=== PATIENT | female | born 1970 | race Caucasian/White ===

== ENCOUNTER 2017-04-28 10:50 | Emergency (ER) | payer OTHER, SELFPAY ==
[2017-04-28 12:20] VITALS: BP 123/89; PULSE 114; RESP 20; TEMP 38.3; O2SAT 98; BMI 24.2
[2017-04-28 22:22] LABS: UTC Influenza A Antigen Negative (Negative); UTC Influenza B Antigen Negative (Negative); UTC Strep Screen (Rapid) Negative (Negative)
== END 2017-04-28 12:20 | disposition home or self-care (01) ==
PROVIDERS: Emergency Provider Physician Assistant; Family Provider Family Medicine; PCP Family Medicine
DX: J11.1 Influenza due to unidentified influenza virus with other respiratory manifestations (principal)
CPT/HCPCS: 87276; 87430; 87804; 87880; 99202

== ENCOUNTER → 2017-08-16 08:06 | Outpatient (CLI) | payer OTHER, SELFPAY ==
--- NOTE | 2017-08-16 08:11 | MM_ITS ---
MM Dig screening mamm BI w/CAD CAD Screening ORDERING PHYSICIAN : Tanvi Donato PATIENT AGE: 47 years GENDER: Female COMPARISON: Previous mammograms: July 2014, January 2016, December 2011 INDICATION: Routine screening with no hormones, no new complaints. Noncontributory family history. TECHNIQUE: Standard CC and MLO images were obtained. R2 CAD reviewed. FINDINGS: Dense inhomogeneous breast bilaterally again seen. Relatively Difficult mammogram for interpretation due to the asymmetric and inhomogeneous appearance with scattered areas of focal increased density throughout bilaterally but I see no definitive new mass or findings. No suspicious new densities overall compared to multiple prior studies. Bilateral follow-up in one year recommended. . Ultrasound may be useful compliment to mammography in breast of this inhomogeneous and moderate increased density. Certainly If any palpable areas developed or progressed low threshold for ultrasound would be appropriate to survey & Self breast examinations would be encouraged IMPRESSION: Dense inhomogeneous breast bilaterally decreased sensitivity mammography but we see no discrete new areas of significant concern. Bilateral follow-up in one year again recommended & would be encouraged/emphasized. BI-RADS Category: 2 Benign Finding(s) RECOMMENDED FOLLOW-UP: 1YR - 1 YEAR FOLLOW-UP (A letter has been sent to the patient regarding results of the study.)
== END ==
PROVIDERS: Family Provider Family Medicine; PCP Family Medicine; Visit Provider Obstetrics & Gynecology Gynecology
DX: Z12.31 Encounter for screening mammogram for malignant neoplasm of breast (principal)
CPT/HCPCS: 77067

== ENCOUNTER → 2018-03-04 08:32 | Outpatient (CLI) | payer OTHER, SELFPAY ==
[2018-03-04 09:27] LABS: Basophils % 0.6 % (0.1-2.0); Eosinophils # 0.1 K/mm3 (0.0-0.4); Eosinophils % 1.2 % (0.1-12.0); Hematocrit 42.8 % (37.0-47.0); Lymphocytes # 1.7 K/mm3 (0.7-4.5); Lymphocytes % 32.3 % (10-50); Mean Corpuscular HGB Conc 32.7 g/dL (31.8-35.4); Mean Corpuscular Hemoglobin 29.8 pg (27.0-31.2); Mean Corpuscular Volume 91.2 fl (81-99); Mean Platelet Volume 7.4 fl (7.4-10.4); Monocytes # 0.3 K/mm3 (0.1-1.0); Monocytes % 4.6 % (1.7-9.3); Neutrophils # 3.2 K/mm3 (1.8-7.8); Neutrophils % 61.2 % (37.0-80.0); Platelet Count 247 K/mm3 (142-424); Red Cell Distribution Width 12.7 % (11.5-17.5); White Blood Count 5.3 K/mm3 (4.8-10.8)
[2018-03-04 10:07] LABS: Erythrocyte Sedimentation Rate 10 mm/hr (0-20)
[2018-03-04 11:10] LABS: Alanine Aminotransferase 25 U/L (12-78); Albumin Level 3.7 gm/dL (3.4-5.0); Albumin/Globulin Ratio 1.1 (1.1-1.8); Alkaline Phosphatase 83 U/L (46-116); Anion Gap 15.1 mEq/L (5-15); Aspartate Amino Transferase 15 U/L (15-37); Bilirubin,Total 1.6 mg/dL (0.2-1.0); Blood Urea Nitrogen 8 mg/dL (7-18); Calcium 8.8 mg/dL (8.5-10.1); Carbon Dioxide 26 mmol/L (21.0-32.0); Chloride 104 mmol/L (98-107); Chol/HDL Ratio 2.4 (1-3.5); Cholesterol 195 mg/dL (140-200); Creatinine,Serum 0.76 mg/dL (0.55-1.02); Estimated Glomerular Filt Rate 82 ml/min (>60); GFR (African American) 99 ML/MIN (>60); Globulin 3.3 gm/dl (1.3-3.2); Glucose 101 mg/dL (74-106); HDL Cholesterol 81 mg/dL (29-89); LDL Cholesterol 102 mg/dL (0-130); Potassium 4.1 mmoL/L (3.5-5.1); Sodium 141 mmol/L (136-145); T4 (Thyroxine) 9.7 ug/dl (4.7-13.3); Thyroid Stimulating Hormone 1.42 uIU/ml (0.358-3.740); Triglycerides 58 mg/dL (30-200); Uric Acid 4.2 mg/dL (2.6-7.2); VLDL Cholesterol 12 mg/dL (0-40)
[2018-03-04 11:11] LABS: C-Reactive Protein < 0.2 mg/L (0.0-0.9)
[2018-03-05 09:20] LABS: Vitamin D 25 Hydroxy 29.5 ng/mL (30.0-100.0)
[2018-03-05 15:18] LABS: Antichromatin Antibodies <0.2 AI (0.0-0.9); RA Latex Turbid. <10.0 IU/mL (0.0-13.9); RNP Antibodies <0.2 AI (0.0-0.9); Sjogren's Anti-SS-A <0.2 AI (0.0-0.9); Sjogren's Anti-SS-B <0.2 AI (0.0-0.9)
[2018-03-06 07:00] LABS: Folate 14.1 ng/mL (>3.0)
[2018-03-06 07:01] LABS: Anti-DNA (DS) Ab Qn <1 IU/mL (0-9); Antinuclear Antibodies, IFA Positive (.); Vitamin B12 525 pg/mL (232-1245)
[2018-03-06 07:25] LABS: PTT-LA 34.5 sec (0.0-51.9); dRVVT 35.2 sec (0.0-47.0)
[2018-03-07 07:03] LABS: Lupus Reflex Interpretation Comment: (.)
== END ==
PROVIDERS: Visit Provider Nurse Practitioner Family
DX: L65.9 Nonscarring hair loss, unspecified (principal); R53.83 Other fatigue
CPT/HCPCS: 36415; 80053; 80061; 82607; 82652; 82746; 84436; 84443; 84550; 85025; 85613; 85651; 86038; 86140; 86225; 86235; 86431

== ENCOUNTER → 2019-05-28 13:26 | Outpatient (CLI) | payer OTHER, SELFPAY ==
[2019-05-28 13:27] LABS: Microscopic, Urine URINE MICROSCOPIC (MICROSCOPIC)
[2019-05-28 13:33] LABS: Appearance,Urine CLEAR (Clear); Bilirubin,Urine Negative (Negative); Blood, Urine Negative (Negative); Color,Urine YELLOW (Yellow); Glucose,Urine (UA) Negative (Negative); Ketones,Urine Negative (Negative); Leukocyte Esterase,Urine Negative (Negative); Nitrate,Urine POSITIVE (Negative); Protein,Urine Negative (Negative); Specific Gravity, Urine 1.025 (1.005-1.030); Urobilinogen,Urine 0.2 EU/dl (0.2)
[2019-05-28 13:40] LABS: Bacteria,Urine 4+ /lpf
== END ==
PROVIDERS: Visit Provider Emergency Medicine
DX: N39.0 Urinary tract infection, site not specified (principal)
CPT/HCPCS: 81001; 87086; 87088; 87186

== ENCOUNTER 2021-05-14 08:57 | Emergency (ER) | payer BC, SELFPAY ==
[2021-05-14 09:15] VITALS: BP 141/92; PULSE 102; RESP 21; TEMP 37.3; O2SAT 99; BMI 23.0
--- NOTE | 2021-05-14 09:18 | HMH.EDUTC ---
[facility] [place] Disposition Clinical Impression: URI (upper respiratory infection) Qualifiers: URI type: unspecified URI Qualified Code(s): J06.9 - Acute upper respiratory infection, unspecified Disposition: Home, Self-Care Condition on Discharge: Good Instructions: Sore Throat, DI for Cough -- Adult, DI for Nasal Congestion Additional Instructions: *Monitor Temp, Over the counter Motrin or Tylenol as directed/as needed Tylenol every 4 hours and Motrin every 6 hours (as long as your family doctor has told you that you can take it) for fever or pain. and straight to ER if unable to lower temp less than 101.0 after medication given *Warm salt water gargles may help to soothe the throat *Throat Lozenges *Warm fluids like tea with honey may help to soothe the throat *Sleep elevated *Humidifier/Vaporizer Your throat swab was sent for culture. Those results are typically sent to your primary care. Be sure to follow up in 2-3 days with your family doctor/primary care physician if no improvement so they can review those result and treat if necessary. If you don?t have a primary care doctor, I recommend you get one but in the mean time, you will have to return to a walk in clinic Follow up IMMEDIATELY for new or worsening symptoms or no Noticeable improvement over the next 48-72 hours. 911 for difficulty breathing or swallowing Prescriptions: Benzonatate [Benzonatate 100mg cap] 100 mg PO Q8HP PRN #15 cap PRN Reason: Cough Transmission Status: Pending to [facility] # Azithromycin [Z-Terence 250mg Tab] 250 mg PO DIRECTED #6 tab Transmission Status: Pending to [facility] # Referrals: Jw Browning MD [Primary Care Provider] - As needed Time of Disposition: 09:59 Medical Decision Making - Teodoro Inquiry Pt receiving controlled substance: No Teodoro was queried for this patient: No Vital Signs: 05/14/21 09:15 Temperature 99.2 F Temperature Source Oral Pulse Rate [Left] 102 H Respiratory Rate 21 Blood Pressure [Right Arm] 141/92 H Blood Pressure Mean [Right Arm] 108 02 Sat by Pulse Oximetry 99 - Lab Data Lab results reviewed: Yes: I reviewed the patient's lab results. Lab Results 05/14/21 09:10: Group A Strep Rapid Negative 05/14/21 09:16: Influenza Type A Ag Negative, Influenza Type B Ag Negative Orders (Tests/Meds): ORDERS Category Date Time Status Strep Screen Confirmation Stat Micro 05/14/21 09:10 Received [facility] [place] HPI - General Stated complaint: sore throat, cough, h/a, body aches, congestion Time Seen by Provider: 05/14/21 09:18 Mode of Arrival: Ambulatory Source of Information: Patient Limitations: No Limitations Description of Symptoms (Recalled from Triage Doc. by RN): pt c/o a cough and body aches since yesterday. pt was covid positive 3 wks ago. HEENT Symptoms (Recalled from RN notes): No Resp Symptoms (Recalled from RN notes): Yes (cough) Skin Symptoms (Recalled from RN notes): No MS Symptoms (Recalled from RN notes): No Functional Status (Recalled from RN notes): wnl - History of Present Illness Provider Complaint: Patient states that she has been having cough, sore throat, body aches and pain in both ears that started yesterday States that she had COVID about 3 weeks ago and was better but now this started yesterday - Related Data Home Medications Medication Instructions Recorded Confirmed bisoprolol fumarate 5 mg tablet 5 mg PO DAILY 30 Days #30 tab 03/19/18 04/07/19 Previous Rx's Medication Instructions Recorded Phenazopyridine HCl [Pyridium 200 pow PO TID #6 tab 04/07/19 200mg Tablet] Sulfamethoxazole/Trimethoprim 1 each PO BID 7 Days #14 tab 04/07/19 [Bactrim DS tablet] meclizine 25 mg tablet See Rx Instructions PO TID PRN #21 05/25/19 tab ondansetron HCl 4 mg tablet 4 mg PO Q8H PRN #21 tab 05/25/19 promethazine 25 mg tablet 25 mg PO TID PRN #21 tab 05/25/19 ciprofloxacin HCl 500 mg tablet 500 mg PO BID 5 Days #10 tab 0
[2021-05-14 09:44] LABS: UTC Influenza A Antigen Negative (Negative); UTC Influenza B Antigen Negative (Negative)
[2021-05-14 09:45] LABS: Strep Scrn Group A (Rapid) Negative (Negative)
[2021-05-14 10:15] VITALS: BP 141/92; PULSE 102; RESP 21; TEMP 37.3
== END 2021-05-14 10:16 | disposition home or self-care (01) ==
PROVIDERS: Emergency Provider Nurse Practitioner; PCP Emergency Medicine
DX: J06.9 Acute upper respiratory infection, unspecified (principal); Z20.822 Contact with and (suspected) exposure to COVID-19; I48.0 Paroxysmal atrial fibrillation
CPT/HCPCS: 87430; 87804; 99203; G0463

== ENCOUNTER → 2021-07-03 17:02 | Outpatient (CLI) | payer OTHER, SELFPAY ==
[2021-07-03 19:55] LABS: Basophils # 0.1 K/mm3 (0-0.2); Basophils % 1.5 % (0.1-2.0); Eosinophils % 0.3 % (0.1-12.0); Hemoglobin 15.7 g/dL (12.2-16.2); Lymphocytes # 2.3 K/mm3 (0.7-4.5); Lymphocytes % 27.8 % (10-50); Mean Corpuscular HGB Conc 33.5 g/dL (31.8-35.4); Mean Corpuscular Hemoglobin 31.2 pg (27.0-31.2); Mean Corpuscular Volume 93.1 fl (81-99); Mean Platelet Volume 10.5 fl (7.4-10.4); Monocytes # 0.6 K/mm3 (0.1-1.0); Monocytes % 7.8 % (1.7-9.3); Neutrophils # 5.1 K/mm3 (1.8-7.8); Neutrophils % 62.5 % (37.0-80.0); Platelet Count 312 K/mm3 (142-424); Red Blood Count 5.05 M/mm3 (4.20-5.40); Red Cell Distribution Width 13.3 % (11.5-17.5); White Blood Count 8.2 K/mm3 (4.8-10.8)
[2021-07-03 20:05] LABS: Alanine Aminotransferase 20 U/L (12-78); Albumin Level 4.9 g/dl (3.5-5.0); Albumin/Globulin Ratio 1.8 (1.1-1.8); Alkaline Phosphatase 71 U/L (38-126); Anion Gap 12.5 mEq/L (5-15); Aspartate Amino Transferase 26 U/L (14-36); Bilirubin,Total 1.3 mg/dl (0.2-1.3); Blood Urea Nitrogen 14 mg/dl (7-17); Calcium 9.8 mg/dl (8.4-10.2); Carbon Dioxide 27 mmol/L (22.0-30.0); Chloride 101 mmol/L (98-107); Chol/HDL Ratio 2.2 (1-3.5); Cholesterol 210 mg/dl (140-200); Estimated Glomerular Filt Rate 76 ml/min (>60); GFR (African American) 92 ML/MIN (>60); Globulin 2.7 g/dL (1.3-3.2); Glucose 88 mg/dl (74-100); HDL Cholesterol 95 mg/dl (40-60); Potassium 4.5 mmoL/L (3.5-5.1); Sodium 136 mmol/L (136-145); Total Protein,Serum 7.6 g/dl (6.3-8.2); Triglycerides 150 mg/dl (30-150); Uric Acid 4.6 mg/dl (2.5-6.2); VLDL Cholesterol 30 mg/dL (0-40)
[2021-07-03 20:17] LABS: C-Reactive Protein 2.3 mg/L (0-4); Direct LDL Cholesterol 82.79 mg/dL (100-129)
[2021-07-03 20:22] LABS: T4 (Thyroxine) 8.5 ug/dl (5.53-11.0)
[2021-07-03 20:23] LABS: 25-OH Vitamin D, Total 38.6 ng/mL (30-100)
[2021-07-03 20:29] LABS: Erythrocyte Sedimentation Rate 16 mm/hr (0-20)
[2021-07-03 20:36] LABS: Thyroid Stimulating Hormone 1.65 uIU/mL (0.465-4.68)
[2021-07-05 08:47] LABS: RA Latex Turbid. 10.4 IU/mL (<14.0)
[2021-07-05 13:12] LABS: Antinuclear Antibodies, IFA Negative (.)
== END ==
PROVIDERS: Visit Provider Nurse Practitioner Family
DX: R53.83 Other fatigue (principal); M25.50 Pain in unspecified joint
CPT/HCPCS: 80053; 80061; 82306; 84436; 84443; 84550; 85025; 85651; 86038; 86140; 86431

== ENCOUNTER → 2021-08-01 13:39 | Outpatient (CLI) | payer OTHER, SELFPAY ==
[2021-08-25 19:09] LABS: Anti-Cardiolipin Antibody IgG <10 GPL (.); Anti-Cardiolipin Antibody IgM <10 MPL (.); Beta-2 Glycoprotein I Ab, IgA <10 SAU (.); Beta-2 Glycoprotein I Ab, IgG <10 SGU (.); Beta-2 Glycoprotein I Ab, IgM <10 SMU (.); Hexagonal Phase Phospholipid 3 sec (.); Prothrombin Time 10.3 sec (.); Thrombin Time 18.8 sec (.)
== END ==
PROVIDERS: Visit Provider Nurse Practitioner Family
DX: M25.50 Pain in unspecified joint (principal); R53.83 Other fatigue
CPT/HCPCS: 36415; 85597; 85598; 85610; 85613; 85670; 85730; 86146; 86147

== ENCOUNTER → 2021-08-07 15:07 | Outpatient (CLI) | payer OTHER, SELFPAY ==
--- NOTE | 2021-08-07 15:08 | MR_ITS ---
FINAL REPORT CLINICAL HISTORY: elbow pain. elbow pain [id number]. pain worse on radial side. pain when bending and extending. no injury or trauma. FINDINGS: Multiplanar MR imaging of the right elbow was performed without contrast. The bony structures are intact without evidence of fracture, bone bruise or marrow edema. There is no evidence of osteochondral lesion. The ligaments appear intact. There is a moderate, partial tear of the origin of the common extensor tendon. The common flexor tendon is intact. The biceps tendon is intact. The distal triceps tendon is intact. The brachialis tendon is intact. The musculature has an unremarkable appearance. No soft tissue mass or cyst is identified. There is a small joint effusion. No focal abnormality is identified of the ulnar nerve. IMPRESSION: Moderate, partial tear at the origin of the common extensor tendon. Small joint effusion. Reviewed, Interpreted and Dictated by Ryan Juares III, MD Transcribed by Nadine Frazier Authenticated by Ryan Juares III, MD on 08/07/2021 05:12:13 PM [facility]
== END ==
PROVIDERS: PCP Nurse Practitioner Family; Visit Provider Nurse Practitioner Family
DX: M25.521 Pain in right elbow (principal)
CPT/HCPCS: 73221

== ENCOUNTER → 2021-10-16 07:04 | Outpatient (CLI) | payer OTHER, SELFPAY ==
--- NOTE | 2021-10-16 07:35 | MM_ITS ---
PROCEDURE INFORMATION: Exam: MG Bilateral Screening 3D Mammography Exam date and time: 10/16/2021 7:53 AM Age: 51 years old Clinical indication: Screening. No family history of breast cancer. TECHNIQUE: Imaging protocol: Bilateral Screening tomosynthesis and 2D mammography including computer-aided detection (CAD) when performed. COMPARISON: 1. MG SCBI MM Dig screening mamm BI w/CAD 08/16/2017 8:32 AM 2. MG DMSB DIG MAMM-SCREEN IKE 02/20/2016 8:33 AM FINDINGS: MAMMOGRAPHY: Breast composition: The breasts are heterogeneously dense, which may obscure small masses. Mass: No suspicious mass. Architectural distortion: None. Calcifications: No suspicious calcifications. Asymmetric density: None. Skin thickening: None. Axillary adenopathy: None. IMPRESSION: No mammographic evidence of malignancy. Annual screening is recommended unless otherwise clinically indicated. ASSESSMENT: BI-RADS Category 1: Negative
== END ==
PROVIDERS: PCP Physician Assistant; Visit Provider Obstetrics & Gynecology
DX: Z12.31 Encounter for screening mammogram for malignant neoplasm of breast (principal)
CPT/HCPCS: 77063; 77067

== ENCOUNTER → 2022-02-15 11:06 | Outpatient (CLI) | payer OTHER, SELFPAY ==
--- NOTE | 2022-02-15 11:12 | XR_ITS ---
FINAL REPORT CLINICAL HISTORY: sob off and on, tachycardia FINDINGS: Two views of the chest were obtained. The heart size and pulmonary vascularity are within normal limits. The mediastinum is normal. No acute pulmonary abnormality is identified. There is no pneumothorax. The bony thorax is intact. IMPRESSION: No active cardiopulmonary disease. Reviewed, Interpreted and Dictated by Ryan Juares III, MD Transcribed by Sugar Montgomery Authenticated and [facility]
== END ==
PROVIDERS: PCP Physician Assistant; Visit Provider Internal Medicine Pulmonary Disease
DX: R06.02 Shortness of breath (principal)
CPT/HCPCS: 71046

== ENCOUNTER → 2022-05-08 09:21 | Outpatient (POV) | payer OTHER, SELFPAY | PROVIDERS: Visit Provider Dermatology | DX: Z00.00 Encounter for general adult medical examination without abnormal findings (principal) ==

== ENCOUNTER → 2022-07-12 09:10 | Outpatient (CLI) | payer OTHER, SELFPAY ==
--- NOTE | 2022-07-12 09:15 | XR_ITS ---
FINAL REPORT CLINICAL HISTORY: SOB, left sided chest pain COMPARISON: 02/15/2022 FINDINGS: TWO-VIEW CHEST The heart size is normal. The mediastinum is normal. The lungs are clear. There is no pneumothorax. IMPRESSION: No acute cardiopulmonary process. Reviewed, Interpreted and Dictated by Shmuel Castillo MD Transcribed by Gisel Gutierrez Authenticated and [facility]
== END ==
PROVIDERS: PCP Emergency Medicine; Visit Provider Internal Medicine Pulmonary Disease
DX: R06.02 Shortness of breath (principal)
CPT/HCPCS: 71046

== ENCOUNTER 2022-07-24 07:31 | Emergency (ER) | payer OTHER, SELFPAY ==
[2022-07-24] VITALS (13 sets, daily range): BP systolic 117–155; BP diastolic 72–105; PULSE 69–93; RESP 15–19; TEMP 36.4–36.8; O2SAT 97–100; BMI 25.4; BMI 24.5
--- NOTE | 2022-07-24 07:53 | XR_ITS ---
FINAL REPORT CLINICAL HISTORY: dizziness, soa, chest heaviness COMPARISON: 07/12/2022 FINDINGS: TWO-VIEW CHEST The heart size is normal. The mediastinum is normal. The lungs are clear. There is no pneumothorax. IMPRESSION: No acute cardiopulmonary process. Reviewed, Interpreted and Dictated by Shmuel Castillo MD Transcribed by Gisel Gutierrez Authenticated and [facility]
--- NOTE | 2022-07-24 07:55 | PC.NURSE ---
LISA PADILLA at
--- NOTE | 2022-07-24 08:00 | CT_ITS ---
FINAL REPORT TECHNIQUE: Axial CT images were performed through the head. Coronal reformatted images were submitted. This study was performed with techniques to keep radiation doses as low as reasonably achievable (ALARA). Individualized dose reduction techniques using automated exposure control or adjustment of mA and/or kV according to the patient's size were employed. CLINICAL HISTORY: dizziness FINDINGS: The ventricles are normal in size. There is no evidence of hemorrhage. There is no mass or edema identified. There is no abnormal extra-axial fluid seen. The sinuses are well aerated. IMPRESSION: No acute intracranial process. Reviewed, Interpreted and Dictated by Shmuel Castillo MD Transcribed by Gisel Gutierrez Authenticated and [facility]
--- NOTE | 2022-07-24 08:00 | CT_ITS ---
FINAL REPORT TECHNIQUE: thin section axial CT with and without IV contrast supplemented with multiplanar 3-D reconstruction of the head. This study was performed with techniques to keep radiation doses as low as reasonably achievable, (ALARA)individualized dose reduction techniques using automated exposure control or adjustment of mA and/or kV according to the patient's size were employed. CLINICAL HISTORY: dizziness FINDINGS: HEAD CT: The ventricles are normal in size. There is no evidence of hemorrhage. No masses are identified. No extra-axial fluid is seen. The sinuses are normal. CTA: The cranial circulation is unremarkable. Normal intracranial branching pattern is noted. There is no significant stenosis, aneurysm or occlusion. IMPRESSION: No acute process. Reviewed, Interpreted and Dictated by Shmuel Castillo MD Transcribed by Sugar Montgomery Authenticated and [facility]
--- NOTE | 2022-07-24 08:00 | CT_ITS ---
FINAL REPORT TECHNIQUE: NASCET technique utilized for stenosis evaluation. CLINICAL HISTORY: dizziness FINDINGS: RIGHT CAROTID: No significant stenosis is seen of the cervical common or internal carotid artery. LEFT CAROTID: There is mild to moderate focal calcification at the origin of the right ICA. VERTEBRALS: The vertebral arteries are patent. No significant stenosis is present. IMPRESSION: No significant stenosis. Reviewed, Interpreted and Dictated by Shmuel Castillo MD Transcribed by Gisel Gutierrez Authenticated and [facility]
[2022-07-24 08:02] LABS: Coronavirus 19, PCR Not Detected (NotDetected); Influenza A, PCR Not Detected (NotDetected); Influenza B, PCR Not Detected (NotDetected)
[2022-07-24 08:02] LABS: Basophils # 0.1 K/mm3 (0-0.2); Basophils % 0.7 % (0.1-2.0); Eosinophils % 0.1 % (0.1-12.0); Hematocrit 47.8 % (37.0-47.0); Hemoglobin 15.5 g/dL (12.2-16.2); Lymphocytes # 1.4 K/mm3 (0.7-4.5); Lymphocytes % 16.5 % (10-50); Mean Corpuscular HGB Conc 32.5 g/dL (31.8-35.4); Mean Corpuscular Hemoglobin 29.4 pg (27.0-31.2); Mean Corpuscular Volume 90.3 fl (81-99); Mean Platelet Volume 7.8 fl (7.4-10.4); Monocytes # 0.4 K/mm3 (0.1-1.0); Monocytes % 4.2 % (1.7-9.3); Neutrophils # 6.7 K/mm3 (1.8-7.8); Neutrophils % 78.4 % (37.0-80.0); Platelet Count 260 K/mm3 (142-424); Red Blood Count 5.29 M/mm3 (4.20-5.40); Red Cell Distribution Width 12.7 % (11.5-17.5); White Blood Count 8.6 K/mm3 (4.8-10.8)
--- NOTE | 2022-07-24 08:03 | HMH.EDGENADL ---
Discharge Plan Disposition Patient Disposition: Home, Self-Care Condition: Good Prescriptions Prescriptions: New ondansetron 4 mg tablet,disintegrating 4 mg PO Q8H PRN (Reason: nausea and vomiting) 4 Days Qty: 14 0RF promethazine 12.5 mg tablet 12.5 mg PO Q6H PRN (Reason: allergy symptoms) Qty: 10 0RF Rx Instructions: 3 doses during day; last dose no later than 4 hr before bedtime meclizine 25 mg tablet 25 mg PO TID PRN (Reason: dizziness) Qty: 10 0RF No Action bisoprolol fumarate 5 mg tablet 5 mg PO DAILY 30 Days Qty: 30 amoxicillin-pot clavulanate 875-125 mg tablet 1 tab PO BID 10 Days Qty: 20 0RF methylprednisolone [Medrol (Terence)] 4 mg tablets,dose pack 4 mg PO .COMPLEX Qty: 21 0RF Rx Instructions: 4 mg orally as directed per dose pack; meloxicam 7.5 mg tablet 7.5 mg PO DAILY Qty: 30 2RF acyclovir 5 % ointment 1 applic topical 6XD 7 Days Qty: 5 0RF Referrals Follow up/Referrals: Ashlie Andrews PA [Primary Care Provider] - See instructions Clinical Impressions Clinical Impression: Nausea & vomiting, Benign paroxysmal positional vertigo Instructions Patient Instructions: Vertigo, Nausea and Vomiting-Adult Print Language Print Language: Bulgarian Discharge ED Provider: Humberto Rossi General Adult HPI General Chief complaint: Dizziness Stated complaint: SOA dizzy palpatations Time Seen by Provider: 07/24/22 10:42 Mode of Arrival: Ambulatory Source of Information: Patient Limitations: No Limitations Description of Symptoms (Recalled from ER Triage Doc. by RN): pt to ED with intermitten dizziness x 2 days that progressed throughout the night to SOB when laying flat, palpitations, nausea and left shoulder blade pain. pt denies any recent fever or illness. History of Present Illness HPI narrative: Patient presents to the emergency department with dizziness, nausea, vomiting and generalized malaise. The patient states that she woke up this morning at approximately 4 AM with significant dizziness. She has a history of tachycardia and is on bisoprolol for that. She is followed by Dr. Ward at [facility]. The patient denies any recent fever, chills, cough, congestion. She states that she did not feel well earlier this week. She denied any preceding chest pain, headache. She denies any dizziness now but states she is significantly nauseous and has been vomiting. She denies any ataxia or difficulty with ambulation. Related Data Home Medications Medication Instructions Recorded Confirmed bisoprolol fumarate 5 mg tablet 5 mg PO DAILY Tachycardia 30 days 03/19/18 10/09/21 #30 tabs Previous Rx's Medication Instructions Recorded acyclovir 5 % topical ointment 1 applic topical 6XD 7 days #5 02/08/22 grams amoxicillin 875 mg-potassium 1 tab PO BID 10 days #20 tabs 02/08/22 clavulanate 125 mg tablet meloxicam 7.5 mg tablet 7.5 mg PO DAILY #30 tabs 02/08/22 methylprednisolone 4 mg tablets in 4 mg PO .COMPLEX #21 tabs 02/08/22 a dose pack (Medrol (Terence)) meclizine 25 mg tablet 25 mg PO TID PRN dizziness #10 tabs 07/24/22 ondansetron 4 mg disintegrating 4 mg PO Q8H PRN nausea and 07/24/22 tablet vomiting 4 days #14 tabs promethazine 12.5 mg tablet 12.5 mg PO Q6H PRN allergy 07/24/22 symptoms #10 tabs Allergies Allergy/AdvReac Type Severity Reaction Status Date / Time metoclopramide [From REGLAN] Allergy Unknown Verified 02/08/22 10:26 [facility] Disclaimer: The information contained in this section may have been updated after the patient was seen, as this information can be updated by other users. Surgical History H/O tubal ligation History of rhinoplasty History of total hysterectomy Family History Other Cancer Diabetes Fatty liver Hypertension Social History (Reviewed 07/24/22 @ 08:05 by Humberto
[2022-07-24 08:04] LABS: Chloride 103 mmol/L (98-107); Potassium 4.1 mmoL/L (3.5-5.1); Sodium 136 mmol/L (136-145)
[2022-07-24 08:06] LABS: Blood Urea Nitrogen 13 mg/dl (7-17); Creatinine Clearance Estimated 104 mL/min (50-200); Estimated Glomerular Filt Rate 106 ml/min (>60); GFR (African American) 128 ML/MIN (>60)
[2022-07-24 08:07] LABS: Alanine Aminotransferase 25 U/L (12-78); Albumin Level 4.8 g/dl (3.5-5.0); Albumin/Globulin Ratio 1.7 (1.1-1.8); Alkaline Phosphatase 87 U/L (38-126); Anion Gap 10.1 mEq/L (5-15); Aspartate Amino Transferase 28 U/L (14-36); Bilirubin,Total 1.1 mg/dl (0.2-1.3); Calcium 9.1 mg/dl (8.4-10.2); Carbon Dioxide 27 mmol/L (22.0-30.0); Globulin 2.9 g/dL (1.3-3.2); Glucose 130 mg/dl (74-100); Total Protein,Serum 7.7 g/dl (6.3-8.2)
--- NOTE | 2022-07-24 08:14 | PC.NURSE ---
Pt to CT
--- NOTE | 2022-07-24 08:16 | PC.NURSE ---
pt going to ct scan at this time.
--- NOTE | 2022-07-24 08:19 | PC.NURSE ---
pt return from ct via wheelchair
[2022-07-24 08:52] LABS: Troponin I < 0.01 ng/ml (0.00-0.034)
[2022-07-24 08:56] LABS: Free T4 (Free Thyroxine) 1.02 ng/dl (0.78-2.19)
--- NOTE | 2022-07-24 09:05 | PC.NURSE ---
checked on pt at this time, pt resting in bed, call light in reach. Pt states no needs at this time
[2022-07-24 09:10] LABS: Thyroid Stimulating Hormone 1.49 uIU/mL (0.465-4.68)
[2022-07-24 09:48] LABS: Microscopic, Urine URINE MICROSCOPIC (MICROSCOPIC)
[2022-07-24 09:49] LABS: Appearance,Urine CLEAR (Clear); Bilirubin,Urine Negative (Negative); Blood, Urine Negative (Negative); Color,Urine YELLOW (Yellow); Glucose,Urine (UA) Negative (Negative); Ketones,Urine Negative (Negative); Leukocyte Esterase,Urine Negative (Negative); Nitrate,Urine Negative (Negative); PH,Urine 6.5 (5.0-8.5); Protein,Urine Negative (Negative); Specific Gravity, Urine <= 1.005 (1.005-1.030); Urobilinogen,Urine 0.2 EU/dl (0.2)
--- NOTE | 2022-07-24 09:51 | PC.NURSE ---
contacted rad to check on status of CTA head r/t in computer it looks like it didn't get logged as taken, spoke with kei states they had to manually send images over so it is taking longer but images are getting sent. States no preliminary reports on head CT or neck CTA yet
--- NOTE | 2022-07-24 10:53 | PC.NURSE ---
checked on pt at this time, pt sleeping
== END 2022-07-24 11:05 | disposition home or self-care (01) ==
PROVIDERS: Emergency Provider Emergency Medicine; PCP Physician Assistant
DX: R42 Dizziness and giddiness (principal); R00.2 Palpitations; R06.02 Shortness of breath; R11.2 Nausea with vomiting, unspecified
CPT/HCPCS: 70450; 70496; 70498; 71046; 80053; 81001; 84439; 84443; 84484; 85025; 93005; 96360; 96374; 96375; 99285; C9803; J2405; Q9967; U0003; U0005

== ENCOUNTER → 2022-08-28 16:59 | Outpatient (CLI) | payer OTHER, SELFPAY | PROVIDERS: PCP Nurse Practitioner Family; Visit Provider Nurse Practitioner Family | DX: J02.9 Acute pharyngitis, unspecified (principal) | CPT/HCPCS: 87070 ==

== ENCOUNTER 2023-07-29 23:25 | Outpatient (CLI) | payer OTHER, SELFPAY ==
[2023-07-29 18:49] LABS: Anion Gap 11.6 mEq/L (5-15); Blood Urea Nitrogen 17 mg/dl (7-17); Carbon Dioxide 28 mmol/L (22.0-30.0); Chloride 102 mmol/L (98-107); Estimated Glomerular Filt Rate 76 ml/min (>60); GFR (African American) 92 ML/MIN (>60); Glucose 92 mg/dl (74-100); Potassium 4.6 mmoL/L (3.5-5.1); Sodium 137 mmol/L (136-145)
== END 2023-07-29 23:59 ==
LOC: LAB.DROPOF 23:25
PROVIDERS: PCP Nurse Practitioner Family; Visit Provider Nurse Practitioner Family
DX: M54.50 Low back pain, unspecified (principal); M79.605 Pain in left leg
CPT/HCPCS: 80048

== ENCOUNTER 2023-07-30 13:35 | Outpatient (CLI) | payer OTHER, SELFPAY ==
--- NOTE | 2023-07-30 13:37 | CT_ITS ---
FINAL REPORT TECHNIQUE: Axial images of the lumbar spine was performed with and without contrast by computed tomography. Sagittal and coronal reformatted images were obtained and reviewed. This study was performed with techniques to keep radiation doses as low as reasonably achievable (ALARA). Individualized dose reduction techniques using automated exposure control or adjustment of mA and/or kV according to the patient's size were employed. CLINICAL HISTORY: low back pain FINDINGS: No fracture is identified. The bony alignment is normal. There is no evidence of abnormal contrast enhancement. L1-2: No significant canal stenosis or neural foraminal narrowing. L2-3: No significant canal stenosis or neural foraminal narrowing. L3-4: An annular disc bulge is present. There is a left foraminal disc protrusion resulting in left L4 nerve root impingement. There is mild left neural foraminal narrowing. L4-5: An annular disc bulge is present with mild bilateral neural foraminal narrowing. L5-S1: Small central disc protrusion is present. IMPRESSION: Left foraminal disc protrusion at L3-4 results in left L4 nerve root impingement. Small central disc protrusion at L5-S1. Reviewed, Interpreted and Dictated by Ryan Juares III, MD Transcribed by Gisel Gutierrez Authenticated and [facility]
--- NOTE | 2023-07-30 13:37 | CT_ITS ---
FINAL REPORT TECHNIQUE: Axial images of the thoracic spine was performed with and without contrast by computed tomography. Sagittal and coronal reformatted images were obtained and reviewed. This study was performed with techniques to keep radiation doses as low as reasonably achievable (ALARA). Individualized dose reduction techniques using automated exposure control or adjustment of mA and/or kV according to the patient's size were employed. CLINICAL HISTORY: back pain FINDINGS: No fracture is identified. The bony alignment is normal. There are mild degenerative changes with small osteophytes. There is no canal stenosis. There is no abnormal contrast enhancement. IMPRESSION: Mild degenerative changes without acute process. Reviewed, Interpreted and Dictated by Ryan Juares III, MD Transcribed by Gisel Gutierrez Authenticated and [facility]
[2023-07-30] MEDS: SODIUM CHLORIDE 0.9% 10ML SYR (RAD ONLY) 10 ML IV (14:00)
[2023-07-30] MEDS: IOPAMIDOL-370 (76%);100ML BOTTLE 75 ML IV (14:00)
== END 2023-07-30 23:59 | disposition home or self-care (01) ==
LOC: RAD 13:37
PROVIDERS: PCP Nurse Practitioner Family; Visit Provider Nurse Practitioner Family
DX: M54.50 Low back pain, unspecified (principal); M79.606 Pain in leg, unspecified
CPT/HCPCS: 72130; 72133; Q9967

== ENCOUNTER 2023-08-19 07:49 | Outpatient (RCR) | payer OTHER, SELFPAY ==
--- NOTE | 2023-08-19 14:08 | HMH.PTOPEV ---
PT Outpatient Evaluation Rehab PT Outpatient Evaluation Start: 08/19/23 07:51 Freq: Status: Active Protocol: Document 08/19/23 07:51 RAMY (Rec: 08/19/23 13:01 RAMY [email or web address]) E-signed By Juany Bravo, PT Outpatient Therapy Subjective History Subjective History This is an initial evaluation for 53 y/o female, Gisel Sierra , who presents with complaints of acute LBP that began on 07/25/23 after lifting a toddler from high chair. Pt felt a sharp pulling feeling that radiated up towards her midback. Pt reports initial pain was 10/10 and has since decreased. Pt reports her current pain is in the central LB and goes to left buttock. Pt denies radiating pain into LEs. Pain increases with bending forward, lifting, sitting without back support, raising legs when sitting, and with standing long periods. Pt with history of LBP but reports this pain is worse and different. CT Scan Impression: Left foraminal disc protrusion at L3-4 results in left L4 nerve root impingement. Small central disc protrusion at L5- S1. New diagnosis of cancer in past 12 No months? Chief Complaint Pain Symptom Type Ache,Sharp,Stabbing Symptoms Relieved By Rest/Positioning,Heat,OTC Meds ,Prescription Meds Symptoms Aggravated By Standing Prior Functional Limitations None Current Functional Limitations Lifting,Housework,Desk Work/ Reading,Sleeping,Standing, Recreation Activity,Walking, Bending/Stooping Symptom Description Constant but Variable Level of pain today (0-10) 3 Pain scale - at its best (0-10) 0 Pain scale - at its worst (0-10) 7 Lumbopelvic Eval Posture Lumbar Spine Posture Standing Position Increased Lordosis Assistive device Assistive Devices None / NA Gait Observation General Gait Pattern Observation No Deviations/Normal Palapation tenderness bilateral lumbar spinal tenderness Yes: 1/4 TTP paraspinal tenderness Yes: 1/4 TTP Lumbar/Sacral Palpation Findings Tenderness Accessory Movement L3 bilateral L4 bilateral L5 bilateral Range of Motion Lumbar Spine Active Flexion Range of Pain/aberrant, 50deg Motion (degrees) Lumbar Spine Active Extension Range of WNL, 34 deg Motion (degrees) Left Lumbar Spine Lateral Flexion Active WNL, 30 deg Range of Motion (degrees) Right Lumbar Spine Lateral Flexion WNL, Painful, 30 deg Active Range of Motion (degrees) Lumbar Spine ROM Limitations Pain Manual Muscle Test Bilateral Hip Flexion Strength Grade 4- Good- Special Tests Sciatic Nerve Tension Test Negative Left,Negative Right Crossed Straight Leg Raise Test Positive Left,Positive Right Oswestry Index Section 1 Pain Intensity The pain comes and goes and is moderate Section 2 Personal Care (Washing,Dresing) my way of washing or dressing even though it causes some pain Section 3 Lifting lifting heavy weights off the floor, but I can manage if they are Section 4 Walking I have some pain when walking but it does not increase with distance Section 5 Sitting Pain prevents me from sitting for more than one hour Section 6 Standing I have some pain on standing, but it does not increase with time Section 7 Sleeping Because of my pain, my normal night's sleep is less than 6 hours sleep Section 8 Social Life My social life is normal and gives me no extra pain Section 9 Traveling I get some pain when traveling , but none of my usual forms of travel m Section 10 Changing Degreee of Pain My pain fluctuates, but overall is definitely getting better Score and Risk Level Oswestry Sc 14 Oswestry Risk Level Mild Disability Outpatient Therapy Assessment Impairments Problems/Impairmments Palpation Tenderness,Impaired Range of Motion,Impaired Strength,Impaired Standing, Impaired Bending,Impaired Recreational Activities, Subjective C/O Pain Prognosis Rehab Potential Good Clinical Impression Consistent with Diagnosis Yes Short Term Goals Number of Weeks 2 Improve Tolerance to Work Activities Yes: Verbalize decreased pain intensity during work activities. Decrease Subjective C/O Pain Yes: At worst 5/10 to decrease pain severity. Patient to be Ind w/ HEP Yes Logistics Officer Goals Number of Weeks 5 Decreased Palpation Tenderness Yes: 0/4 TTP lumbar paraspinals Increase Range of Motion Yes: WNL and painfree to improve functional ROM. Improve Oswestry Score Yes: Improve score by 7 points to decrease disability and improve QOL. Decrease Subjective C/O Pain Yes: At worst 2/10 to decrease pain severity. Patient to be Ind w/ Advanced HEP Yes Outpatient Therapy Plan of Care Treatment Plan May Include Therapeutic Exercise Including Home Yes Exercise Program Manual Therapy Techniques Yes Neuromuscular Re-education Yes Therapeutic Activities to Return to Yes Previous Functional/Work Level ADL/Self Care Education Yes Mechanical Traction Yes Dry Needling Yes Thermal Modalities Yes Electrical Stimulation Yes Ultrasound/Phonophoresis Yes Iontophoresis Yes Orthotics/Bracing/Splinting Yes Massage Yes Eval/Re-Eval Yes Frequency Times per week 1-2 times Duration Number of Weeks 4-5 weeks Addendums This patient is a candidate for social No or vocational rehab? Patient/Guardian verbally acknowledges Yes understanding of treatment program and consents to further treatment? Patient/Guardian verbally acknowledges Yes understanding of diagnosis, prognosis and goals for treatment? Eval Complexity PT Charges 16016 - Low Complexity Shoulder/Elbow Eval Shoulder Objective Measurements Elbow Objective Measurements PHYSICIAN CERTIFICATION: I certify the specified therapy services for Juju Sierra are required, authorized, and reviewed every 30 days.
== END 2023-08-19 09:00 | disposition home or self-care (01) ==
LOC: PT 07:49
PROVIDERS: Visit Provider Nurse Practitioner Family
DX: M54.50 Low back pain, unspecified (principal); M79.605 Pain in left leg; M54.16 Radiculopathy, lumbar region; M51.36 Other intervertebral disc degeneration, lumbar region; M51.34 Other intervertebral disc degeneration, thoracic region
CPT/HCPCS: 97014; 97163; 97535; G0283

== ENCOUNTER 2024-02-03 19:07 | Emergency (ER) | payer OTHER, SELFPAY ==
[2024-02-03] VITALS (12 sets, daily range): BP systolic 116–164; BP diastolic 72–116; PULSE 84–118; RESP 13–21; TEMP 36.6; O2SAT 97–100; BMI 25.4
--- NOTE | 2024-02-03 19:07 | ECG_ITS ---
APPROVED REPORT Exam: Resting ECG HR:120 bpm ECG Measurements Heart Rate 120 AXES NH 104 P 60 QRSd 76 QRS 66 QT 309 T 26 QTc 381 Conclusion SINUS TACHYCARDIA WITH SHORT NH INTERVAL ABNORMAL ECG Electronically signed by : RAMONE MANUEL, 02/03/2024 23:18:15
--- NOTE | 2024-02-03 19:08 | ED_ITS ---
<Statement entered by Eliza Reddy DO - 02/03/24 23:15> I was consulted by the PEMA, and we discussed the complexity of the problems being addressed. I approved the treatment and management plan for this patient's care in the emergency department, thus performing a substantive portion of the medical decision making. Eliza Reddy DO Discharge Plan Disposition Patient Disposition: Home, Self-Care Condition: Good Prescriptions Prescriptions: New pantoprazole [Protonix] 40 mg tablet,delayed release (DR/EC) 40 mg PO DAILY Qty: 30 0RF No Action amoxicillin-pot clavulanate 875-125 mg tablet 1 tab PO BID 10 Days Qty: 20 0RF methylprednisolone [Medrol (Terence)] 4 mg tablets,dose pack 4 mg PO DAILY Qty: 21 0RF Rx Instructions: Take as directed bisoprolol fumarate 5 mg tablet 5 mg PO DAILY 30 Days Qty: 30 fluticasone propionate [Flonase Allergy Relief] 50 mcg/actuation spray,suspension 1 spray intranasal DAILY Qty: 10 5RF Rx Instructions: administer into each nostril levocetirizine [Xyzal] 5 mg tablet 5 mg PO HS Qty: 90 3RF gabapentin 300 mg capsule 300 mg PO HS Qty: 30 2RF Referrals Follow up/Referrals: Provider,MD Maddison [Referring] - See instructions Yared West II, MD [Staff Physician] - See instructions Activity Restrictions/Add. Instructions Additional Instructions/Restrictions: As we discussed please call in the morning to establish follow-up with Dr. West. Return to ER for any worsening signs or symptoms as needed. I have sent a prescription for Protonix to your pharmacy. Clinical Impressions Clinical Impression: Acute chest pain, Acute antritis Print Language Print Language: Vietnamese Discharge ED Provider: Eliza Reddy HPI <JULISSA Villavicencio - Last Filed: 02/03/24 23:01> General Chief Complaint: Chest Pain Stated Complaint: Chest Pain Time Seen by Provider: 02/03/24 19:08 History of Present Illness HPI narrative: Patient presents for evaluation of chest pain. Patient reports acute onset of left-sided chest pain. It does not radiate. Patient has a known history of sinus tachycardia and follows with cardiology at [facility] Dr. Ward, she is on metoprolol 25 once a day. In the past when she has had SVT she notes that her heart rate is been around 180. She does not know what her normal baseline heart rate is on medication. She denies any fever chills cough hemoptysis hematochezia melena nausea vomiting diarrhea. She has had a partial hysterectomy but still has her ovaries and is not on estrogen replacement therapy and is a non-smoker Related Data Home Medications ?Medication ?Instructions ?Recorded ?Confirmed bisoprolol fumarate 5 mg tablet 5 mg PO DAILY Tachycardia 30 days 03/19/18 11/13/23 #30 tabs Previous Rx's ?Medication ?Instructions ?Recorded fluticasone propionate 50 1 spray intranasal DAILY #10 mL 07/29/23 mcg/actuation nasal spray,suspension (Flonase Allergy Relief) levocetirizine 5 mg tablet (Xyzal) 5 mg PO HS #90 tabs 07/29/23 gabapentin 300 mg capsule 300 mg PO HS #30 caps 08/26/23 amoxicillin 875 mg-potassium 1 tab PO BID 10 days #20 tabs 11/13/23 clavulanate 125 mg tablet methylprednisolone 4 mg tablets in 4 mg PO DAILY #21 tabs 11/13/23 a dose pack (Medrol (Terence)) pantoprazole 40 mg tablet,delayed 40 mg PO DAILY #30 tabs 02/03/24 release (Protonix) Allergies Allergy/AdvReac Type Severity Reaction Status Date / Time metoclopramide [From REGLAN] Allergy Unknown Verified 11/13/23 11:23 [facility] <JULISSA Villavicencio - Last Filed: 02/03/24 23:01> [facility] Disclaimer: The information contained in this section may have been updated after the patient was seen, as this information can be updated by other users. Medical History Chronic sinusitis Middle ear effusion Benign paroxysmal positional vertigo Nausea & vomiting Myalgia HSV-1 (herpes simplex virus 1) infection Tachycardia Surgical History History of rhinoplasty H/O tubal ligation History of total hysterectomy Family History Other Cancer Diabetes Fatty liver Hypertension Social History Smoking Status: Unknown if ever smoked alcohol intake: never substance use type: denies use current occupational status: employed and other Travel in the last 8 weeks: None housing: house lives independently: Yes Other Medical History Have you received the Pneumonia Vaccine: No <JULISSA Villavicencio - Last Filed: 02/03/24 23:01> ROS Obtained: Yes Systems reviewed as appropriate & no additional complaints except as documented Physical Exam <JULISSA Villavicencio - Last Filed: 02/03/24 23:01> General General appearance: alert and in no apparent distress Respiratory Respiratory exam: Present normal lung sounds bilaterally Cardiovascular Cardiovascular exam: Present tachycardia Neurological Exam Neurological exam: Present alert and oriented X3 HEART Score <JULISSA Villavicencio - Last Filed: 02/03/24 23:01> HEART Score HEART Score assessment performed?: Yes History (anamnesis): Slightly suspicious ECG: Non-specific disturbance Age: 45-65 years Risk factors: 1-2 risk factors Troponin: </= normal limit HEART Score: 3 <Eliza Reddy DO - Last Filed: 02/03/24 21:49> HEART Score HEART Score: 3 Critical Care <JULISSA Villavicencio - Last Filed: 02/03/24 23:01> Critical Care Time Critical Care Time: No Medical Decision Making <JULISSA Villavicencio - Last Filed: 02/03/24 23:01> Medical Records Medical records reviewed: Yes I reviewed the patient's medical records. Teodoro Inquiry Pt receiving controlled substance: No Vital Signs Vital Signs: 02/03/24 19:07 02/03/24 19:25 02/03/24 19:26 Temperature 97.9 F Temperature Source Oral Pulse Rate 91 H 93 H Pulse Rate [Left] 112 H Respiratory Rate 18 16 20 Blood Pressure 151/85 H 151/85 H Blood Pressure [Right Arm] 145/116 H Blood Pressure Mean [Right Arm] 125 02 Sat by Pulse Oximetry 100 98 99 Oxygen Delivery Method Room Air Room Air 02/03/24 19:58 02/03/24 20:00 02/03/24 20:30 Temperature Temperature Source Pulse Rate 84 86 Pulse Rate [Left] Respiratory Rate 18 16 15 Blood Pressure 151/99 H 157/87 H 164/93 H Blood Pressure [Right Arm] Blood Pressure Mean [Right Arm] 02 Sat by Pulse Oximetry 99 97 Oxygen Delivery Method Room Air 02/03/24 20:33 02/03/24 21:00 02/03/24 21:30 Temperature Temperature Source Pulse Rate 94 H 96 H 107 H Pulse Rate [Left] Respiratory Rate 20 13 17 Blood Pressure 164/93 H 161/90 H 137/80 Blood Pressure [Right Arm] Blood Pressure Mean [Right Arm] 02 Sat by Pulse Oximetry 100 99 98 Oxygen Delivery Method Room Air 02/03/24 22:00 02/03/24 22:30 Temperature Temperature Source Pulse Rate 115 H 118 H Pulse Rate [Left] Respiratory Rate 21 15 Blood Pressure 153/87 H 122/84 Blood Pressure [Right Arm] Blood Pressure Mean [Right Arm] 02 Sat by Pulse Oximetry 97 97 Oxygen Delivery Method Lab Data Lab results reviewed: Yes I reviewed the patient's lab results. Labs: Lab Results 02/03/24 19:13: WBC 7.9, RBC 5.35, Hgb 16.2, Hct 46.9, MCV 87.6, MCH 30.3, MCHC 34.5, RDW 13.2, Plt Count 282, MPV 8.1, Neut % (Auto) 55.0, Lymph % (Auto) 36.5, Bay % (Auto) 5.6, Eos % (Auto) 1.0, Baso % (Auto) 1.9, Neut # (Auto) 4.3, Lymph # (Auto) 2.9, Bay # (Auto) 0.4, Eos # (Auto) 0.1, Baso # (Auto) 0.2, D-Dimer < 0.25, Sodium 136, Potassium 3.9, Chloride 101, Carbon Dioxide 26, Anion Gap 12.9, BUN 21 H, Creatinine 0.90, Estimated Creat Clear 68, Estimated GFR 66, Est GFR ( Amer) 80, Glucose 138 H, Calcium 10.3 H, Total Bilirubin 1.2, AST 43 H, ALT 41, Alkaline Phosphatase 100, Troponin I < 0.01, Total Protein 8.7 H, Albumin 5.2 H, Globulin 3.5 H, Albumin/Globulin Ratio 1.5, Free T4 Index 2.8 L, Thyroxine (T4) 9.0, T3 Uptake 31, HIV 1&2 Antibody Rapid Nonreactive 02/03/24 19:50: SARS-CoV-2 (PCR) Not detected, Influenza A Untype (PCR) Not detected, Influenza Type B (PCR) Not detected 02/03/24 21:42: Urine Color Yellow, Urine Appearance Clear, Urine pH 6.0, Ur Specific Riley <= 1.005, Urine Protein Negative, Urine Glucose (UA) Negative, Urine Ketones Negative, Urine Blood Negative, Urine Nitrate Negative, Urine Bilirubin Negative, Urine Urobilinogen 0.2, Ur Leukocyte Esterase Negative 02/03/24 22:00: Troponin I < 0.01 02/03/24 : Lipase 113 02/03/24 19:13 02/03/24 19:13 Response Orders (Tests/Meds): ED MEDICATIONS Generic Name Dose Route Start Last Admin Trade Name Freq PRN Reason Stop Dose Admin Sodium Chloride 10 ml 02/03/24 20:53 02/03/24 21:15 Sodium Chloride 0.9% 10ml Vial IV 03/04/24 20:52 10 ml NEEDED PRN Administration dilute protonix Discontinued Medications Generic Name Dose Route Start Last Admin Trade Name Freq PRN Reason Stop Dose Admin Acetaminophen 1,000 mg 02/03/24 19:16 02/03/24 19:34 Acetaminophen 500mg Tab PO 02/03/24 19:17 1,000 mg ONCE ONE Administration Aspirin 324 mg 02/03/24 19:18 02/03/24 19:34 Aspirin 81mg Chewable Tablet PO 02/03/24 19:19 324 mg ONCE ONE Administration Belladonna Alkaloids 60 ml 02/03/24 19:44 02/03/24 19:51 Belladonna Alkaloids 60 Ml Ml PO 02/03/24 19:45 60 ml ONCE ONE Administration Iopamidol 70 ml 02/03/24 21:19 02/03/24 21:20 Iopamidol-370 (76%);100ml Bottle IV 02/03/24 21:20 70 ml ONCE ONE Administration Ketorolac Tromethamine 15 mg 02/03/24 19:16 02/03/24 19:34 Ketorolac 30mg/Ml Vial IV 02/03/24 19:17 15 mg ONCE ONE Administration Ondansetron HCl 4 mg 02/03/24 20:23 02/03/24 20:25 Ondansetron 4mg/2ml Vial IV 02/03/24 20:24 4 mg ONCE ONE Administration Pantoprazole Sodium 40 mg 02/03/24 20:53 02/03/24 21:15 Pantoprazole 40mg Vial IV 02/03/24 20:54 40 mg ONCE ONE Administration Promethazine HCl 25 mg 02/03/24 20:53 02/03/24 21:15 Promethazine Hcl 25mg/Ml 1ml Vial IV 02/03/24 20:54 25 mg ONCE ONE Administration Sodium Chloride 25 ml 02/03/24 20:53 02/03/24 21:16 Sodium Chloride 0.9% 25ml Bag IV 02/03/24 20:54 25 ml ONCE ONE Administration Sodium Chloride 10 ml 02/03/24 21:19 02/03/24 21:20 Sodium Chloride 0.9% 10ml Syr (Rad Only) IV 02/03/24 21:20 10 ml ONCE ONE Administration Sodium Chloride 50 ml 02/03/24 21:19 02/03/24 21:20 0.9 % Sodium Chloride 50 Ml Vial IV 02/03/24 21:20 50 ml ONCE ONE Administration ORDERS Category Date Time Status CT abdomen pelvis w con Stat Cat Scan 02/03/24 20:[address] angio chest PE protocol Stat Cat Scan 02/03/24 20:53 Completed Chest XR 2 view (NOT portable) [XR chest 2V] Stat Exams 02/03/24 19:18 Completed CBC w/Auto Diff [Complete Blood Count Auto Diff] Stat Lab 02/03/24 19:13 Completed CMP [Comprehensive Metabolic Panel] Stat Lab 02/03/24 19:13 Completed D-Dimer Stat Lab 02/03/24 19:13 Completed HIV (1&2) Antibody Rapid Stat Lab 02/03/24 19:13 Completed Hep C Ab with Reflex to RNA Stat Lab 02/03/24 19:13 Received Lipase Stat Lab 02/03/24 Completed Rapid PCR Covid and Flu A/B Stat Lab 02/03/24 19:50 Completed Thyroid Panel Stat Lab 02/03/24 19:13 Results Trop I [Troponin I] Stat Lab 02/03/24 19:13 Completed Troponin I Q3H Lab 02/03/24 22:00 Completed Troponin I Q3H Lab 02/04/24 01:30 Ordered UA [Urinalysis and Microscopic] Stat Lab 02/03/24 21:42 Results MDM Narrative Medical Decision Narrative: In summary patient is a 54-year-old female who presents to the emergency department for evaluation of chest pain. Patient is initially normotensive but in a sinus tachycardia on the bedside monitor and otherwise hemodynamically stable upon arrival, afebrile. Physical exam is remarkable for nonreproducible chest pain on palpation with normal breath sounds, rapid regular rhythm without murmurs gallops rubs or thrills, no abdominal tenderness with normal bowel sounds.. Differential diagnosis includes tachyarrhythmia versus ACS versus PE versus infection etc. Initial workup will be conducted with hematologic labs twelve-lead EKG, plain film chest x-ray respiratory swab. Initial interventions include Tylenol Toradol. Initial workup reviewed by me shows that she has a calcium of 10.3 with upper end of normal being 10.2, undetectable troponin, undetectable D-dimer and the remainder of her hematologic labs being nonactionable. Given the acute onset timing the patient was placed in observation status at 2030. Medical necessity for observational status is serial troponins. The patient was provided serial reevaluations continuous cardiac monitoring and pulse oximetry while awaiting results. Is that her troponin remains undetectable and the delta is flat, CT scan of the chest and abdomen was significant for antritis on imaging. Patient also had increasing nausea. We gave her PPI and Phenergan which calm down all of her symptoms. Because of these results and findings I believe the patient can be discharged home after we had an interactive discussion and patient directed decision making with close follow-up with gastroenterology. She will be sent a prescription for PPI to her pharmacy. Total time in observation was 2 hours 30 minutes. <Eliza Reddy, DO - Last Filed: 02/03/24 21:49> Vital Signs Vital Signs: 02/03/24 19:07 02/03/24 19:25 02/03/24 19:26 Temperature 97.9 F Temperature Source Oral Pulse Rate 91 H 93 H Pulse Rate [Left] 112 H Respiratory Rate 18 16 20 Blood Pressure 151/85 H 151/85 H Blood Pressure [Right Arm] 145/116 H Blood Pressure Mean [Right Arm] 125 02 Sat by Pulse Oximetry 100 98 99 Oxygen Delivery Method Room Air Room Air 02/03/24 19:58 02/03/24 20:00 02/03/24 20:30 Temperature Temperature Source Pulse Rate 84 86 Pulse Rate [Left] Respiratory Rate 18 16 15 Blood Pressure 151/99 H 157/87 H 164/93 H Blood Pressure [Right Arm] Blood Pressure Mean [Right Arm] 02 Sat by Pulse Oximetry 99 97 Oxygen Delivery Method Room Air 02/03/24 20:33 02/03/24 21:00 02/03/24 21:30 Temperature Temperature Source Pulse Rate 94 H 96 H 107 H Pulse Rate [Left] Respiratory Rate 20 13 17 Blood Pressure 164/93 H 161/90 H 137/80 Blood Pressure [Right Arm] Blood Pressure Mean [Right Arm] 02 Sat by Pulse Oximetry 100 99 98 Oxygen Delivery Method Room Air 02/03/24 22:00 02/03/24 22:30 Temperature Temperature Source Pulse Rate 115 H 118 H Pulse Rate [Left] Respiratory Rate 21 15 Blood Pressure 153/87 H 122/84 Blood Pressure [Right Arm] Blood Pressure Mean [Right Arm] 02 Sat by Pulse Oximetry 97 97 Oxygen Delivery Method Lab Data Labs: Lab Results 02/03/24 19:13: WBC 7.9, RBC 5.35, Hgb 16.2, Hct 46.9, MCV 87.6, MCH 30.3, MCHC 34.5, RDW 13.2, Plt Count 282, MPV 8.1, Neut % (Auto) 55.0, Lymph % (Auto) 36.5, Bay % (Auto) 5.6, Eos % (Auto) 1.0, Baso % (Auto) 1.9, Neut # (Auto) 4.3, Lymph # (Auto) 2.9, Bay # (Auto) 0.4, Eos # (Auto) 0.1, Baso # (Auto) 0.2, D-Dimer < 0.25, Sodium 136, Potassium 3.9, Chloride 101, Carbon Dioxide 26, Anion Gap 12.9, BUN 21 H, Creatinine 0.90, Estimated Creat Clear 68, Estimated GFR 66, Est GFR ( Amer) 80, Glucose 138 H, Calcium 10.3 H, Total Bilirubin 1.2, AST 43 H, ALT 41, Alkaline Phosphatase 100, Troponin I < 0.01, Total Protein 8.7 H, Albumin 5.2 H, Globulin 3.5 H, Albumin/Globulin Ratio 1.5, Free T4 Index 2.8 L, Thyroxine (T4) 9.0, T3 Uptake 31, HIV 1&2 Antibody Rapid Nonreactive 02/03/24 19:50: SARS-CoV-2 (PCR) Not detected, Influenza A Untype (PCR) Not detected, Influenza Type B (PCR) Not detected 02/03/24 21:42: Urine Color Yellow, Urine Appearance Clear, Urine pH 6.0, Ur Specific Riley <= 1.005, Urine Protein Negative, Urine Glucose (UA) Negative, Urine Ketones Negative, Urine Blood Negative, Urine Nitrate Negative, Urine Bilirubin Negative, Urine Urobilinogen 0.2, Ur Leukocyte Esterase Negative 02/03/24 22:00: Troponin I < 0.01 02/03/24 : Lipase 113 Response Orders (Tests/Meds): ED MEDICATIONS Generic Name Dose Route Start Last Admin Trade Name Freq PRN Reason Stop Dose Admin Sodium Chloride 10 ml 02/03/24 20:53 02/03/24 21:15 Sodium Chloride 0.9% 10ml Vial IV 03/04/24 20:52 10 ml NEEDED PRN Administration dilute protonix Discontinued Medications Generic Name Dose Route Start Last Admin Trade Name Freq PRN Reason Stop Dose Admin Acetaminophen 1,000 mg 02/03/24 19:16 02/03/24 19:34 Acetaminophen 500mg Tab PO 02/03/24 19:17 1,000 mg ONCE ONE Administration Aspirin 324 mg 02/03/24 19:18 02/03/24 19:34 Aspirin 81mg Chewable Tablet PO 02/03/24 19:19 324 mg ONCE ONE Administration Belladonna Alkaloids 60 ml 02/03/24 19:44 02/03/24 19:51 Belladonna Alkaloids 60 Ml Ml PO 02/03/24 19:45 60 ml ONCE ONE Administration Iopamidol 70 ml 02/03/24 21:19 02/03/24 21:20 Iopamidol-370 (76%);100ml Bottle IV 02/03/24 21:20 70 ml ONCE ONE Administration Ketorolac Tromethamine 15 mg 02/03/24 19:16 02/03/24 19:34 Ketorolac 30mg/Ml Vial IV 02/03/24 19:17 15 mg ONCE ONE Administration Ondansetron HCl 4 mg 02/03/24 20:23 02/03/24 20:25 Ondansetron 4mg/2ml Vial IV 02/03/24 20:24 4 mg ONCE ONE Administration Pantoprazole Sodium 40 mg 02/03/24 20:53 02/03/24 21:15 Pantoprazole 40mg Vial IV 02/03/24 20:54 40 mg ONCE ONE Administration Promethazine HCl 25 mg 02/03/24 20:53 02/03/24 21:15 Promethazine Hcl 25mg/Ml 1ml Vial IV 02/03/24 20:54 25 mg ONCE ONE Administration Sodium Chloride 25 ml 02/03/24 20:53 02/03/24 21:16 Sodium Chloride 0.9% 25ml Bag IV 02/03/24 20:54 25 ml ONCE ONE Administration Sodium Chloride 10 ml 02/03/24 21:19 02/03/24 21:20 Sodium Chloride 0.9% 10ml Syr (Rad Only) IV 02/03/24 21:20 10 ml ONCE ONE Administration Sodium Chloride 50 ml 02/03/24 21:19 02/03/24 21:20 0.9 % Sodium Chloride 50 Ml Vial IV 02/03/24 21:20 50 ml ONCE ONE Administration ORDERS Category Date Time Status CT abdomen pelvis w con Stat Cat Scan 02/03/24 20:[address] angio chest PE protocol Stat Cat Scan 02/03/24 20:53 Completed Chest XR 2 view (NOT portable) [XR chest 2V] Stat Exams 02/03/24 19:18 Completed CBC w/Auto Diff [Complete Blood Count Auto Diff] Stat Lab 02/03/24 19:13 Completed CMP [Comprehensive Metabolic Panel] Stat Lab 02/03/24 19:13 Completed D-Dimer Stat Lab 02/03/24 19:13 Completed HIV (1&2) Antibody Rapid Stat Lab 02/03/24 19:13 Completed Hep C Ab with Reflex to RNA Stat Lab 02/03/24 19:13 Received Lipase Stat Lab 02/03/24 Completed Rapid PCR Covid and Flu A/B Stat Lab 02/03/24 19:50 Completed Thyroid Panel Stat Lab 02/03/24 19:13 Results Trop I [Troponin I] Stat Lab 02/03/24 19:13 Completed Troponin I Q3H Lab 02/03/24 22:00 Completed Troponin I Q3H Lab 02/04/24 01:30 Ordered UA [Urinalysis and Microscopic] Stat Lab 02/03/24 21:42 Results ECG Data Tracing #1: Attestation: I reviewed this ECG and interpreted as documented below: ECG Narrative: Sinus tachycardia with a ventricular to [address] changes concerning for ischemia. Normal axis. ECG initial impression date: 02/03/24 ECG initial impression time: 19:08 Tracing #2: Attestation: I reviewed this ECG and interpreted as documented below: ECG Narrative: Normal sinus rhythm with a ventricular rate of [address] changes concerning for ischemia. Normal axis and intervals. ECG initial impression date: 02/03/24 ECG initial impression time: 19:45 Tracing #3: Attestation: I reviewed this ECG and interpreted as documented below: ECG Narrative: Normal sinus rhythm with a ventricular rate of 81 bpm. No significant changes from prior EKG. No acute ST changes concerning for ischemia. ECG initial impression date: 02/03/24 ECG initial impression time: 20:35
--- NOTE | 2024-02-03 19:18 | XR_ITS ---
PROCEDURE INFORMATION: Exam: XR Chest Exam date and time: 02/03/2024 7:19 PM Age: 54 years old Clinical indication: Pain; Chest pressure; Additional info: Chest pain TECHNIQUE: Imaging protocol: Radiologic exam of the chest. Views: 2 views. COMPARISON: CR XR CHEST 2V 07/24/2022 8:07 AM FINDINGS: Lungs: Unremarkable. No consolidation. Pleural spaces: Unremarkable. No pleural effusion. No pneumothorax. Heart/Mediastinum: Unremarkable. No cardiomegaly. Bones/joints: Unremarkable. IMPRESSION: No acute findings.
[2024-02-03 19:28] LABS: Basophils # 0.2 K/mm3 (0-0.2); Basophils % 1.9 % (0.1-2.0); Eosinophils # 0.1 K/mm3 (0.0-0.4); Hematocrit 46.9 % (37.0-47.0); Hemoglobin 16.2 g/dL (12.2-16.2); Lymphocytes # 2.9 K/mm3 (0.7-4.5); Lymphocytes % 36.5 % (10-50); Mean Corpuscular HGB Conc 34.5 g/dL (31.8-35.4); Mean Corpuscular Hemoglobin 30.3 pg (27.0-31.2); Mean Corpuscular Volume 87.6 fl (81-99); Mean Platelet Volume 8.1 fl (7.4-10.4); Monocytes # 0.4 K/mm3 (0.1-1.0); Monocytes % 5.6 % (1.7-9.3); Neutrophils # 4.3 K/mm3 (1.8-7.8); Platelet Count 282 K/mm3 (142-424); Red Blood Count 5.35 M/mm3 (4.20-5.40); Red Cell Distribution Width 13.2 % (11.5-17.5); White Blood Count 7.9 K/mm3 (4.8-10.8)
[2024-02-03] MEDS: ASPIRIN 81MG CHEWABLE TABLET 324 MG PO (19:34)
[2024-02-03] MEDS: KETOROLAC 30MG/ML VIAL 15 MG IV (19:34)
[2024-02-03] MEDS: ACETAMINOPHEN 500MG TAB 1000 MG PO (19:34)
--- NOTE | 2024-02-03 19:43 | ECG_ITS ---
APPROVED REPORT Exam: Resting ECG HR:96 bpm ECG Measurements Heart Rate 96 AXES WY 124 P 56 QRSd 82 QRS 48 QT 351 T 35 QTc 405 Conclusion SINUS RHYTHM POSSIBLE LEFT ATRIAL ENLARGEMENT [-0.1mV P-WAVE IN V1/V2] BORDERLINE ECG Electronically signed by : RAMONE MANUEL, 02/03/2024 23:18:03
[2024-02-03 19:47] LABS: Albumin Level 5.2 g/dl (3.5-5.0); Chloride 101 mmol/L (98-107)
[2024-02-03 19:48] LABS: Potassium 3.9 mmoL/L (3.5-5.1); Sodium 136 mmol/L (136-145)
[2024-02-03 19:50] LABS: Alanine Aminotransferase 41 U/L (12-78); Blood Urea Nitrogen 21 mg/dl (7-17); Creatinine Clearance Estimated 68 mL/min (50-200); Estimated Glomerular Filt Rate 66 ml/min (>60); GFR (African American) 80 ML/MIN (>60)
[2024-02-03 19:51] LABS: Albumin/Globulin Ratio 1.5 (1.1-1.8); Alkaline Phosphatase 100 U/L (38-126); Anion Gap 12.9 mEq/L (5-15); Aspartate Amino Transferase 43 U/L (14-36); Bilirubin,Total 1.2 mg/dl (0.2-1.3); Calcium 10.3 mg/dl (8.4-10.2); Carbon Dioxide 26 mmol/L (22.0-30.0); Globulin 3.5 g/dL (1.3-3.2); Glucose 138 mg/dl (74-100); Total Protein,Serum 8.7 g/dl (6.3-8.2)
[2024-02-03] MEDS: BELLADONNA ALKALOIDS 60 ML ML PO (19:51)
[2024-02-03 19:53] LABS: Coronavirus 19, PCR Not Detected (NotDetected); Influenza A, PCR Not Detected (NotDetected); Influenza B, PCR Not Detected (NotDetected)
[2024-02-03 19:56] LABS: D-Dimer < 0.25 ug/mL (0.0-0.5)
[2024-02-03 20:06] LABS: Triiodothryronine (T3) Uptake 31 % (23.5-40.5)
[2024-02-03 20:07] LABS: Free Thyroxine Index 2.8 ug/dL (5.93-13.13)
[2024-02-03 20:14] LABS: Troponin I < 0.01 ng/ml (0.00-0.034)
[2024-02-03] MEDS: ONDANSETRON 4MG/2ML VIAL 4 MG IV (20:25)
--- NOTE | 2024-02-03 20:33 | ECG_ITS ---
APPROVED REPORT Exam: Resting ECG HR:81 bpm ECG Measurements Heart Rate 81 AXES MS 118 P 53 QRSd 76 QRS 48 QT 347 T 32 QTc 384 Conclusion SINUS RHYTHM WITH SHORT MS INTERVAL POSSIBLE LEFT ATRIAL ENLARGEMENT [-0.1mV P-WAVE IN V1/V2] BORDERLINE ECG Electronically signed by : RAMONE MANUEL, 02/03/2024 23:17:53
[2024-02-03 20:47] LABS: Lipase 113 U/L (23-300)
--- NOTE | 2024-02-03 20:53 | CT_ITS ---
PROCEDURE INFORMATION: Exam: CTA Chest With Contrast Exam date and time: 02/03/2024 9:16 PM Age: 54 years old Clinical indication: Pain; Chest pressure; Additional info: Chest pain, SOA TECHNIQUE: Imaging protocol: Computed tomographic angiography of the chest with contrast. Exam focused on the arteries. 3D rendering (Not supervised by radiologist): MIP and/or 3D reconstructed images were created by the technologist. Radiation optimization: All CT scans at this facility use at least one of these dose optimization techniques: automated exposure control; mA and/or kV adjustment per patient size (includes targeted exams where dose is matched to clinical indication); or iterative reconstruction. Contrast material: ISOVUE; Contrast volume: 70 ml; Contrast route: INTRAVENOUS (IV); COMPARISON: CT ANGIO CHEST PE PROTOCOL 02/03/2024 9:16 PM FINDINGS: Pulmonary arteries: Normal. No pulmonary emboli. Aorta: Unremarkable. No aortic aneurysm. No aortic dissection. Lungs: Unremarkable. No consolidation. No masses. Right lung granuloma coronal image 1003/119 Pleural spaces: Unremarkable. No pneumothorax. No pleural effusion. Heart: Unremarkable. No cardiomegaly. No pericardial effusion. Lymph nodes: Unremarkable. No enlarged lymph nodes. Bones/joints: Unremarkable. No acute fracture. Soft tissues: Unremarkable. IMPRESSION: No acute findings.
--- NOTE | 2024-02-03 20:53 | CT_ITS ---
PROCEDURE INFORMATION: Exam: CT Abdomen And Pelvis With Contrast Exam date and time: 02/03/2024 9:16 PM Age: 54 years old Clinical indication: Abdominal pain; Additional info: Pain, n/v TECHNIQUE: Imaging protocol: Computed tomography of the abdomen and pelvis with contrast. 3D rendering (Not supervised by radiologist): MIP and/or 3D reconstructed images were created by the technologist. Radiation optimization: All CT scans at this facility use at least one of these dose optimization techniques: automated exposure control; mA and/or kV adjustment per patient size (includes targeted exams where dose is matched to clinical indication); or iterative reconstruction. Contrast material: ISOVUE; Contrast volume: 70 ml; Contrast route: IV; COMPARISON: CT ANGIO CHEST PE PROTOCOL 02/03/2024 9:16 PM FINDINGS: Esophagus: The esophagus is normal. Liver: The liver is normal. Gallbladder and biliary ducts: The gallbladder is normal. Pancreas: Pancreas appears normal. Spleen: Calcified splenic granulomas. Adrenal glands: The adrenal glands appear normal. Kidneys and ureters: The kidneys are normal. Stomach and bowel: Nonspecific bowel gas pattern. Normal appendix. Retained stool in the colon. Stomach is distended with fluid and debris. Appendix: See Stomach and bowel finding. Intraperitoneal space: Unremarkable. No free air. No significant fluid collection. Vasculature: Visceral arteries are patent. Portal vein, splenic vein, SMV are patent. Lymph nodes: No free air or fluid or adenopathy. Urinary bladder: The bladder is normal. Reproductive: Fallopian tube occlusion devices seen in the pelvis. Bones/joints: Unremarkable. No acute fracture. Soft tissues: Unremarkable. Other findings: Mild antral wall thickening axial image 4/33. IMPRESSION: 1. No free air or fluid or adenopathy. 2. Nonspecific bowel gas pattern. Normal appendix. 3. Retained stool in the colon 4. Stomach is distended with fluid and debris. 5. Mild antral wall thickening axial image 4/33. Antritis not excluded. 6. Fallopian tube occlusion devices seen in the pelvis.
[2024-02-03] MEDS: PANTOPRAZOLE 40MG VIAL 40 MG IV (21:15)
[2024-02-03] MEDS: SODIUM CHLORIDE 0.9% 10ML VIAL 10 ML IV (21:15)
[2024-02-03] MEDS: PROMETHAZINE HCL 25MG/ML 1ML VIAL 25 MG IV (21:15)
[2024-02-03] MEDS: SODIUM CHLORIDE 0.9% 25ML BAG 25 ML IV (21:16)
[2024-02-03] MEDS: IOPAMIDOL-370 (76%);100ML BOTTLE 70 ML IV (21:20)
[2024-02-03] MEDS: 0.9 % SODIUM CHLORIDE 50 ML VIAL IV (21:20)
[2024-02-03] MEDS: SODIUM CHLORIDE 0.9% 10ML SYR (RAD ONLY) 10 ML IV (21:20)
[2024-02-03 21:26] LABS: HIV (1&2) Antibody Rapid NONREACTIVE (NONREACTIVE)
--- NOTE | 2024-02-03 22:03 | PC.NURSE ---
family @ bedside,call light within reach, at bedside
[2024-02-03 22:07] LABS: Microscopic, Urine URINE MICROSCOPIC (MICROSCOPIC)
[2024-02-03 22:29] LABS: Appearance,Urine CLEAR (Clear); Bilirubin,Urine Negative (Negative); Blood, Urine Negative (Negative); Color,Urine YELLOW (Yellow); Glucose,Urine (UA) Negative (Negative); Ketones,Urine Negative (Negative); Leukocyte Esterase,Urine Negative (Negative); Nitrate,Urine Negative (Negative); Protein,Urine Negative (Negative); Specific Gravity, Urine <= 1.005 (1.005-1.030); Urobilinogen,Urine 0.2 EU/dl (0.2)
[2024-02-03 22:36] LABS: Troponin I < 0.01 ng/ml (0.00-0.034)
[2024-02-03 23:00] LABS: Bacteria,Urine Trace /lpf
[2024-02-04 03:32] LABS: Thyroid Stimulating Hormone 2.24 uIU/mL (0.465-4.68)
[2024-02-05 05:27] LABS: HCV Ab Non Reactive (Non Reactive)
== END 2024-02-03 23:17 | disposition home or self-care (01) ==
PROVIDERS: Physician Assistant; Emergency Provider Emergency Medicine; PCP Nurse Practitioner Family
DX: R07.9 Chest pain, unspecified (principal)
CPT/HCPCS: 71046; 71275; 74177; 80053; 81001; 83690; 84436; 84443; 84479; 84484; 85025; 85378; 86803; 87389; 87636; 93005; 96374; 96375; 99285; J1885; J2405; J2550; Q9967

== ENCOUNTER 2024-02-11 14:45 | Outpatient (CLI) | payer OTHER, SELFPAY ==
--- NOTE | 2024-02-11 14:46 | MM_ITS ---
PROCEDURE INFORMATION: Exam: MG Bilateral Screening 3D Mammography Exam date and time: 02/11/2024 2:33 PM Age: 54 years old Clinical indication: Screening examination TECHNIQUE: Imaging protocol: Bilateral Screening tomosynthesis and 2D mammography including computer-aided detection (CAD) when performed. COMPARISON: 1. MG MM DIG SCREENING MAMM BI W/CAD 10/16/2021 7:53 AM 2. MG SCBI MM Dig screening mamm BI w/CAD 08/16/2017 8:32 AM FINDINGS: MAMMOGRAPHY: Breast composition: The breasts are heterogeneously dense, which may obscure small masses. Mass: None. Architectural distortion: None. Calcifications: No suspicious calcifications. Asymmetric density: None. Skin thickening: None. Axillary adenopathy: None. IMPRESSION: No mammographic evidence of malignancy. Annual screening is recommended unless otherwise clinically indicated. ASSESSMENT: BI-RADS Category 1: Negative.
== END 2024-02-11 23:59 | disposition home or self-care (01) ==
LOC: RAD 14:46
PROVIDERS: PCP Nurse Practitioner Family; Visit Provider Obstetrics & Gynecology
DX: Z12.31 Encounter for screening mammogram for malignant neoplasm of breast (principal)
CPT/HCPCS: 77063; 77067

== ENCOUNTER 2024-04-01 14:25 | Outpatient (CLI) | payer OTHER, SELFPAY ==
--- NOTE | 2024-04-01 14:34 | XR_ITS ---
FINAL REPORT CLINICAL HISTORY: ankle pain COMPARISON: None FINDINGS: RIGHT ANKLE: Three views of the right ankle were obtained. There is no acute fracture or dislocation. The joint spaces and mortise are intact. There is no soft tissue abnormality. IMPRESSION: No acute bony abnormality. Reviewed, Interpreted and Dictated by Ryan Juares III, MD Transcribed by Giuliana Bright Authenticated and . [facility]
== END 2024-04-01 23:59 | disposition home or self-care (01) ==
LOC: RAD 14:26
PROVIDERS: PCP Nurse Practitioner Family; Visit Provider Podiatrist
DX: M25.571 Pain in right ankle and joints of right foot (principal)
CPT/HCPCS: 73610

== ENCOUNTER 2024-04-09 07:42 | Outpatient (CLI) | payer OTHER, SELFPAY ==
[2024-04-09 08:18] LABS: Basophils % 0.9 % (0.1-2.0); Eosinophils % 0.9 % (0.1-12.0); Hematocrit 41.9 % (37.0-47.0); Hemoglobin 14.3 g/dL (12.2-16.2); Lymphocytes % 37.7 % (10-50); Mean Corpuscular HGB Conc 34.1 g/dL (31.8-35.4); Mean Corpuscular Hemoglobin 29.4 pg (27.0-31.2); Mean Corpuscular Volume 86.2 fl (81-99); Mean Platelet Volume 10.1 fl (7.4-10.4); Monocytes % 9.1 % (1.7-9.3); Neutrophils % 50.9 % (37.0-80.0); Platelet Count 262 K/mm3 (142-424); Red Blood Count 4.86 M/mm3 (4.20-5.40); White Blood Count 5.6 K/mm3 (4.8-10.8)
[2024-04-09 08:19] LABS: Basophils # 0.1 K/mm3 (0-0.2); Eosinophils # 0.1 K/mm3 (0.0-0.4); Lymphocytes # 2.1 K/mm3 (0.7-4.5); Monocytes # 0.5 K/mm3 (0.1-1.0); Neutrophils # 2.9 K/mm3 (1.8-7.8)
[2024-04-09 08:26] LABS: Hemoglobin A1C 5.3 % (4.0-6.0)
[2024-04-09 08:27] LABS: Albumin Level 4.5 g/dl (3.5-5.0); Chloride 104 mmol/L (98-107); D-Dimer 0.56 ug/mL (0.0-0.5); Potassium 4.4 mmoL/L (3.5-5.1); Sodium 134 mmol/L (136-145)
[2024-04-09 08:30] LABS: Alanine Aminotransferase 28 U/L (12-78); Alkaline Phosphatase 85 U/L (38-126); Anion Gap 5.4 mEq/L (5-15); Aspartate Amino Transferase 31 U/L (14-36); Bilirubin,Direct 0.1 mg/dl (0.0-0.4); Bilirubin,Indirect 1.4 mg/dL (0.0-0.9); Bilirubin,Total 1.5 mg/dl (0.2-1.3); Bilirubin,Unconjugated 1.4 mg/dL (0.0-1.1); Blood Urea Nitrogen 14 mg/dl (7-17); Calcium 9.7 mg/dl (8.4-10.2); Carbon Dioxide 29 mmol/L (22.0-30.0); Cholesterol 225 mg/dl (140-200); Estimated Glomerular Filt Rate 66 ml/min (>60); GFR (African American) 80 ML/MIN (>60); Glucose 96 mg/dl (74-100); Magnesium 2.1 mg/dl (1.6-2.3); Total Protein,Serum 6.8 g/dl (6.3-8.2); Triglycerides 87 mg/dl (30-150); VLDL Cholesterol 17 mg/dL (0-40)
[2024-04-09 08:31] LABS: Chol/HDL Ratio 2.2 (1-3.5); HDL Cholesterol 103 mg/dl (40-60)
[2024-04-09 08:37] LABS: Calcium 9.7 mg/dl (8.4-10.2)
[2024-04-09 08:42] LABS: Direct LDL Cholesterol 100.62 mg/dL (100-129)
[2024-04-09 08:49] LABS: Free T4 (Free Thyroxine) 1.12 ng/dl (0.78-2.19)
[2024-04-09 08:50] LABS: Troponin I < 0.01 ng/ml (0.00-0.034)
[2024-04-09 09:02] LABS: Thyroid Stimulating Hormone 2.29 uIU/mL (0.465-4.68)
== END 2024-04-09 23:59 | disposition home or self-care (01) ==
LOC: LAB 07:43
PROVIDERS: PCP Nurse Practitioner Family; Visit Provider Internal Medicine
DX: R07.89 Other chest pain (principal); R94.31 Abnormal electrocardiogram [ECG] [EKG]; Z87.898 Personal history of other specified conditions; E11.9 Type 2 diabetes mellitus without complications; R00.2 Palpitations
CPT/HCPCS: 36415; 80048; 80061; 80076; 82310; 83036; 83735; 84439; 84443; 84484; 85025; 85378; 93270

== ENCOUNTER 2024-04-13 13:33 | Outpatient (CLI) | payer OTHER, SELFPAY ==
--- NOTE | 2024-04-13 13:36 | CA_ITS ---
APPROVED REPORT EXAM: Comprehensive 2D, Doppler, and color-flow Echocardiogram Generating Station Mechanic: Henna Mistry RT(R) Ht: 5 ft 0 in Wt: 134lbs BSA: 1.57 BP: 143/84 mmHg Indications: abn EKG, tachycardia, CP, palpitations 2D Dimensions Left Atrium 2.51 cm F: 2.7 - 3.8 LVEF (Hu's) 58.00 % F: 54 - 74 LVOT 2.00 cm (M/F) 1.5-2.5 LV Volume 57.40 mL F: 46 - 106 LV Volume Index 36.6 mL/m2 F: 29 - 61 LA Volume 17.70 mL LA Volume Index 11.27 mL/m2 (M/F) 16-34 EF AP4 61.80 % EF AP2 56.2 % EF BP 58.0 % GL Strain -22.1 % M-Mode Dimensions RVDd 1.92 cm (0.9-2.6) LVDd 3.83 cm (3.5-5.7) Ao Diam 2.27 cm (2.0-3.7) LVDs 2.87 cm (3.5-5.7) IVSd 0.58 cm (0.6-1.1) PWd 0.75 cm (0.6-1.1) EF (Teich) 50.20% FS 25.10% EDV (Teich) 63.10 mL ESV (Teich) 31.40 mL LV Diastology E Decel Time 150 (160-240 msec) E/A Ratio 1.7 MED E' 8.0 (>= 7 cm/sec) E'/MED E' Ratio 13.44 (<= 14) LAT E' 12.0 (>= 10 cm/sec) E/LAT E' Ratio 8.96 (<= 14) Mitral Valve MV E Max Gerry. 107.0 (40-130 cm/s) MV A Velocity 63.0 (40-130 cm/s) E/A Ratio 1.70 MV Decel. Time 150 (160-240 ms) Tricuspid Valve TR P. Velocity 261.00 cm/s RAP Estimate 10.00 mmHg RVSP 37.30 mmHg Left Ventricle The left ventricle is normal size. The left ventricular systolic function is normal. The left ventricular ejection fraction is within the normal range. There is normal left ventricular wall thickness. There is normal LV segmental wall motion. The left ventricular diastolic function is normal. LVEF is 55%. Right Ventricle The right ventricle is normal size. The right ventricular systolic function is normal. Atria The left atrium size is normal. The right atrium size is normal. There is no Doppler evidence of interatrial shunt. Aortic Valve The aortic valve opens well. There is no aortic valvular stenosis. No aortic regurgitation is present. Mitral Valve The mitral valve is normal in structure. No evidence of mitral valve stenosis. Mild mitral regurgitation. Tricuspid Valve Tricuspid valve is grossly normal in structure and function. Mild tricuspid regurgitation. RVSP is 25-30 mmHg. Pulmonic Valve The pulmonary valve is normal in structure. Trace pulmonic regurgitation. Great Vessels The aortic root is normal in size. IVC is normal in size and collapses >50% with inspiration. Pericardium There is no pericardial effusion. Other Information Study Quality: Adequate Conclusion Normal biventricular systolic function. Mild MR, mild TR. Electronically signed by : Gloria Hammer MD 04/19/2024 12:12:14
== END 2024-04-13 23:59 | disposition home or self-care (01) ==
LOC: RT 13:34
PROVIDERS: PCP Nurse Practitioner Family; Visit Provider Internal Medicine
DX: I34.0 Nonrheumatic mitral (valve) insufficiency (principal); I36.1 Nonrheumatic tricuspid (valve) insufficiency; R07.89 Other chest pain; R94.31 Abnormal electrocardiogram [ECG] [EKG]; Z87.898 Personal history of other specified conditions
CPT/HCPCS: 93306

== ENCOUNTER 2024-04-21 07:01 | Outpatient (CLI) | payer OTHER, SELFPAY ==
[2024-04-21] VITALS (7 sets, daily range): BP systolic 116–157; BP diastolic 73–100; PULSE 62–98; RESP 18–20; O2SAT 97–100; BMI 25.4
[2024-04-21] MEDS: METOPROLOL TARTRATE 50MG TABLET PO (07:21)
[2024-04-21] MEDS: IVABRADINE HCL 7.5MG TABLET PO (07:22)
[2024-04-21] MEDS: NITROGLYCERIN 0.4MG SL TABLET SL (08:22)
[2024-04-21] MEDS: 0.9 % SODIUM CHLORIDE 50 ML VIAL IV (09:01)
[2024-04-21] MEDS: SODIUM CHLORIDE 0.9% 10ML SYR (RAD ONLY) 10 ML IV (09:01)
[2024-04-21] MEDS: IOPAMIDOL-370 (76%);100ML BOTTLE 85 ML IV (09:02)
== END 2024-04-21 09:00 | disposition home or self-care (01) ==
PROVIDERS: PCP Nurse Practitioner Family; Visit Provider Internal Medicine
DX: R94.31 Abnormal electrocardiogram [ECG] [EKG] (principal); Z87.898 Personal history of other specified conditions; R07.89 Other chest pain
CPT/HCPCS: 75574; Q9967

== ENCOUNTER 2024-04-24 09:29 | Outpatient (CLI) | payer OTHER, SELFPAY ==
--- NOTE | 2024-04-24 09:29 | MR_ITS ---
FINAL REPORT CLINICAL HISTORY: Ankle Pain lateral ankle pain after a fall FINDINGS: Multiplanar and multisequence imaging of the right ankle was obtained without intravenous contrast. BONES/JOINT: Bone marrow signal intensity is normal. There is no edema, contusion or pathologic marrow replacement. LIGAMENTS: There is a partial tear of the anterior talofibular ligament. There is a sprain or partial tear of the calcaneofibular ligament. There is a partial tear of the deltoid ligament. The spring ligament is within normal limits. TENDONS: The Achilles tendon is normal in size and signal intensity. The medial tendons are within normal limits. The peroneus longus and brevis tendons are within normal limits. There is no evidence of peroneus brevis split tear. The extensor tendons are within normal limits. OTHER SOFT TISSUES: There is a tibiotalar joint effusion. Signal intensity within the sinus tarsi is preserved. The plantar fascia is normal in size and signal intensity. There are no additional areas of abnormal signal intensity. There are no masses or abnormal fluid collections. Mild lateral soft tissue edema is identified. IMPRESSION: Partial tear of the anterior talofibular ligament. Partial tear of the deltoid ligament. Sprain or partial tear of the calcaneofibular ligament Reviewed, Interpreted and Dictated by Alyssa Fuller MD Transcribed by Gisel Gutierrez Authenticated and [facility]
== END 2024-04-24 23:59 | disposition home or self-care (01) ==
LOC: RAD 09:29
PROVIDERS: PCP Nurse Practitioner Family; Visit Provider Nurse Practitioner
DX: M25.571 Pain in right ankle and joints of right foot (principal)
CPT/HCPCS: 73721

== ENCOUNTER 2024-06-11 08:00 | Outpatient (RCR) | payer OTHER, SELFPAY ==
--- NOTE | 2024-06-11 10:54 | HMH.PTOPEV ---
PT Outpatient Evaluation Rehab PT Outpatient Evaluation Start: 06/11/24 09:30 Freq: Status: Active Protocol: Document 06/11/24 09:30 SHARON (Rec: 06/11/24 10:53 SHARON [id number]) E-signed By Ken Hampton, PT Outpatient Therapy Subjective History Subjective History Patient is a 54 year old female presenting to outpatient PT with reports of R foot/ankle pain and instability. Symptom onset starting approx 4 months ago after a fall at home. Most recent imaging indicates partial tears of the R ATFL, deltoid ligaments and CFL. Other comorbidities include hx of L ulnar compound fx ORIF, cholecystectomy and appendectomy. New diagnosis of cancer in past 12 No months? Chief Complaint Pain,Stiff,Swelling,Gives out/ Unstable,Weakness Symptom Type Ache,Sharp Symptoms Relieved By Rest/Positioning,Ice,OTC Meds Symptoms Aggravated By Standing,Physical Activity, Walking Prior Functional Limitations None Current Functional Limitations Housework,Standing,Walking, Stairs Symptom Description Constant but Variable Level of pain today (0-10) 1 Pain scale - at its best (0-10) 0 Pain scale - at its worst (0-10) 5 Ankle/Foot Eval Gait Observation General Gait Pattern Observation Antalgic Gait,Decrease Stride Lngth (R) Palpation Tenderness right Ankle/Foot Palpation Findings Tenderness Ankle/Foot Palpation Overall Comment ATFL 3/4 ROM Ankle/Foot Dorsiflexion w/Knee Extended -11 Active Range Motion (degrees) Ankle/Foot Plantar Flexion Active Range WNL of Motion (degrees) Ankle/Foot Eversion Active Range of 9 Motion (degrees) Ankle/Foot Inversion Active Range of 23 Motion (degrees) Great Toe ROM Reason Not Measured Within Functional Limits Special Tests Ankle Anterior Drawer Test Positive Right Ankle Eversion Test Negative Right Foot Interdigital Neuroma Test Negative Right Lower Extremity Functional Index Activities Today, do you or would you have any difficulty at all with: a.Any of your usual work, housework or A little bit of difficulty school activities b. Your usual hobbies, recreational or Moderate difficulty sporting activities c. Getting into or out of the bath Moderate difficulty d. Walking between rooms A little bit of difficulty e. Putting on your shoes or socks A little bit of difficulty g. Lifting an object, like a bag of No difficulty groceries from the floor h. Performing light activities around No difficulty your home i. Performing heavy activities around Moderate difficulty your home j. Getting into or out of a car A little bit of difficulty l. Walking a mile Quite a bit of difficulty m. Going up or down 10 stairs (about 1 Quite a bit of difficulty flight of stairs) n. Standing for 1 hour Quite a bit of difficulty o. Sitting for 1 hour No difficulty p. Running on even ground Extreme difficulty or unable to perform activity q. Running on uneven ground Extreme difficulty or unable to perform activity r. Making sharp turns while running fast Extreme difficulty or unable to perform activity s. Hopping Quite a bit of difficulty t. Rolling over in bed No difficulty Outpatient Therapy Assessment Impairments Problems/Impairmments Palpation Tenderness,Impaired Range of Motion,Impaired Strength,Impaired Endurance, Impaired Transfers,Impaired Gait Pattern,Impaired Walking, Impaired Standing,Impaired Household Care,Impaired Stair Climbing,Impaired Incline Stepping,Impaired Stepping on Uneven Surface,Impaired Recreational Activities, Impaired Work Activities, Subjective C/O Pain Prognosis Rehab Potential Good Clinical Impression Consistent with Diagnosis Yes Short Term Goals Number of Weeks 2 Decrease Subjective C/O Pain Yes: 06/29 at worst Patient to be Ind w/ HEP Yes Shelter Goals Number of Weeks 4-6 Decreased Palpation Tenderness Yes: 04/25 Increase Range of Motion Yes: WNL Increase Strength Yes: 08/24 all planes Increase Ability to Walk Yes: 1 hr without difficulty Increase Ability to Stand Yes Improve Ability to Climb Stairs Yes: 1 flight up/down without difficulty Decrease Subjective C/O Pain Yes: 05/01 at worst Outpatient Therapy Plan of Care Treatment Plan May Include Therapeutic Exercise Including Home Yes Exercise Program Manual Therapy Techniques Yes Neuromuscular Re-education Yes Therapeutic Activities to Return to Yes Previous Functional/Work Level Gait Training Yes ADL/Self Care Education Yes Dry Needling Yes Thermal Modalities Yes Electrical Stimulation Yes Ultrasound/Phonophoresis Yes Iontophoresis Yes Orthotics/Bracing/Splinting Yes Vasopneumatic Compression Pump Yes Massage Yes Eval/Re-Eval Yes Frequency Times per week 2-3 Duration Number of Weeks 4-6 Addendums This patient is a candidate for social No or vocational rehab? Patient/Guardian verbally acknowledges Yes understanding of treatment program and consents to further treatment? Patient/Guardian verbally acknowledges Yes understanding of diagnosis, prognosis and goals for treatment? Eval Complexity PT Charges 63793 - Moderate Complexity Shoulder/Elbow Eval Shoulder Objective Measurements Elbow Objective Measurements PHYSICIAN CERTIFICATION: I certify the specified therapy services for Juju Shefali Brown are required, authorized, and reviewed every 30 days.
== END 2024-06-11 23:59 | disposition home or self-care (01) ==
LOC: PT 08:00
PROVIDERS: PCP Nurse Practitioner Family; Visit Provider Podiatrist
DX: M25.571 Pain in right ankle and joints of right foot (principal); S93.411D Sprain of calcaneofibular ligament of right ankle, subsequent encounter; S93.491D Sprain of other ligament of right ankle, subsequent encounter
CPT/HCPCS: 97163

== ENCOUNTER 2024-12-23 14:57 | Outpatient (CLI) | payer OTHER, SELFPAY ==
--- NOTE | 2024-12-23 14:59 | XR_ITS ---
FINAL REPORT CLINICAL HISTORY: right foot pain-- hx of torn tendon COMPARISON: None FINDINGS: RIGHT FOOT 3 views of the right foot were obtained. There is no acute fracture or dislocation. Visualized joint spaces are normally aligned. Soft tissues are unremarkable. IMPRESSION: No acute bony abnormality. Reviewed, Interpreted and Dictated by Shmuel Castillo MD Transcribed by Chioma Davalos Authenticated and [facility]
--- NOTE | 2024-12-23 14:59 | XR_ITS ---
FINAL REPORT CLINICAL HISTORY: right ankle sprain-- hx of torn tendon COMPARISON: None FINDINGS: RIGHT ANKLE 3 views of the right ankle were obtained. There is no acute fracture or dislocation. The mortise is intact. Visualized joint spaces are normally aligned. Soft tissues are unremarkable. IMPRESSION: No acute bony abnormality. Reviewed, Interpreted and Dictated by Shmuel Castillo MD Transcribed by Chioma Davalos Authenticated and [facility]
--- OUTSIDE RECORDS SUMMARY | 2024-12-23 15:03 | XMS_ITS | Clinical Summary ---
Author Organization [facility] Address [facility] [place] [address] Care Team Providers Care Interactive Developer Name Role Phone Jw Browning MD Primary Care Provider [phone] Family History Medical History Relation Name Comments Cardiac disorder Other 1 Heart failure Other 2 Diabetes Other 3 Hypertension Other 4 Conversions - Other Other 5 malignan t neoplasm of ovary Relation Name Status Comments Other 1 Other 2 Other 3 Other 4 Other 5 Social History Tobacco Use Types Packs/Day Years Used Date Smoking Tobacco: Never Alcohol Use Standard Drinks/Week Comments No 0 (1 standard drink = 0.6 oz pur e alcohol) Comments Unknown Sex and Gender Information Value Date Recorded Sex Assigned at Unknown 04/21/2024 11:49 AM EST Legal Sex Female 8:04 PM EDT Gender Identity Not on file Sexual Orientation Not on file Last Filed Vital Signs Vital Sign Reading Time Taken Comments Blood Pressure 126/72 06/10/2018 12:15 PM EST Pulse 77 06/10/2018 12:15 PM EST Temperature 36.8 C (98.3 F) 06/10/2018 12:15 PM EST Respiratory Rate 14 06/10/2018 12:15 PM EST Oxygen Saturation - - Inhaled Oxygen Concentration - - Weight 60.1 kg (132 lb 7.9 oz) 06/10/2018 12:15 PM EST Height 152.4 cm (5') 06/10/2018 12:15 PM EST Body Mass Index 25.88 06/10/2018 12:15 PM EST Plan of Treatment Health Maintenance Due Date Last Done Comments [facility]-Depression Screening 1972 [facility]-/Child/Adol SDOH Screenings 1972 [facility]- SDOH Screenings 12/31/1989 [facility]-Adult SDOH Screenings 12/31/1989 [facility]-DTaP,Tdap,and Td Vaccine s (1 - Tdap) 12/31/1990 [facility]-Hepatitis B Vaccines (1 of 3 - 19+ 3-dose series) 12/31/1990 [facility]-Pap Smear 12/31/1992 [facility]-Cervical Cancer Screening 12/31/2001 [facility]-HPV/Cotest 12/31/2001 CT Colonography 12/31/2016 Colonoscopy 12/31/2016 FIT-DNA 12/31/2016 FIT 12/31/2016 FOBT 12/31/2016 Sigmoidoscopy 12/31/2016 [facility]-Colorectal Cancer Screening 12/31/2016 [facility]-Pneumococcal Vaccine: 50 + Years (1 of 1 - PCV) 12/31/2021 [facility]-Zoster Vaccines (1 of 2) 12/31/2021 [id number] Vaccine (1 - 20 24-25 season) 2023 [facility]-Influenza Vaccine (#1) 2024 HPV Vaccines Aged Out No longer eligi ble based on patient's age to complete this topic [facility]-HIB Vaccines Aged Out No longer e ligible based on patient's age to complete this topic [facility]-Hepatitis A Vaccines Aged Out No longer eligible based on patient's age to complete this topic [facility]-IPV Vaccines Aged Out No longer e ligible based on patient's age to complete this topic [facility]-Rotavirus Vaccines Aged Out No lo nger eligible based on patient's age to complete this topic Insurance Care Teams Interactive Developer Relationship Specialty Start Date End Date Jw Browning MD [address] [place] [address] PCP - General 09/02/20
== END 2024-12-23 23:59 | disposition home or self-care (01) ==
LOC: RAD 14:58
PROVIDERS: PCP Nurse Practitioner Family; Visit Provider Orthopaedic Surgery
DX: S93.411A Sprain of calcaneofibular ligament of right ankle, initial encounter (principal); S93.421A Sprain of deltoid ligament of right ankle, initial encounter
CPT/HCPCS: 73610; 73630

== ENCOUNTER 2025-03-08 13:14 | Outpatient (CLI) | payer OTHER, SELFPAY ==
--- NOTE | 2025-03-08 13:16 | XR_ITS ---
FINAL REPORT CLINICAL HISTORY: right wrist pain COMPARISON: None FINDINGS: RIGHT WRIST Three views demonstrate no acute fracture or dislocation. The visualized joint spaces are normally aligned. The soft tissues are unremarkable. IMPRESSION: No acute bony abnormality. Reviewed, Interpreted and Dictated by Shmuel Castillo MD Transcribed by Kathy Wright Authenticated and [facility]
--- NOTE | 2025-03-08 13:16 | XR_ITS ---
FINAL REPORT CLINICAL HISTORY: right hand pain thumb pain, trigger finger COMPARISON: None FINDINGS: RIGHT HAND Three views demonstrate no acute fracture or dislocation. The visualized joint spaces are normally aligned. The soft tissues are unremarkable. IMPRESSION: No acute bony abnormality. Reviewed, Interpreted and Dictated by Shmuel Castillo MD Transcribed by Kathy Wright Authenticated and . [facility]
== END 2025-03-08 23:59 | disposition home or self-care (01) ==
LOC: RAD 13:15
PROVIDERS: PCP Nurse Practitioner Family; Visit Provider Orthopaedic Surgery
DX: M25.531 Pain in right wrist (principal); M79.641 Pain in right hand; M79.644 Pain in right finger(s); M65.30 Trigger finger, unspecified finger
CPT/HCPCS: 73110; 73130

== ENCOUNTER 2025-04-12 08:01 | Outpatient (CLI) | payer OTHER, SELFPAY ==
--- OUTSIDE RECORDS SUMMARY | 2025-04-12 08:04 | XMS_ITS | Clinical Summary ---
Author Organization [facility] Address [facility] [address] Care Team Providers Care Superintendent Terminal Name Role Phone Jw Browning MD Primary Care Provider [phone] Family History Medical History Relation Name Comments [...] 12/31/2021 [facility]-Zoster Vaccines (1 of 2) 12/31/2021 [id number] Vaccine (1 - 20 25-26 season) 2024 [facility]-Influenza Vaccine (#1) 2024 HPV Vaccines (No Doses Required) Completed [facility]-HIB Vaccines Aged Out No longer e [...] patient's age to complete this topic Insurance [facility] Care Teams Superintendent Terminal Relationship Specialty Start Date End Date Jw Browning MD [address] [place] [address] PCP - General 09/02/20
--- OUTSIDE RECORDS SUMMARY | 2025-04-12 08:04 | XMS_ITS ---
Author Organization Unknown ENCOUNTERS Encounter Performer Location Date Diagnosis Diagnosis Status Pre Admit [address] [place] [address] [id number] Emergency [address] [place] [address] [id number] [facility] Humberto Rossi [address] [place] [address] [id number] [facility] Wanda Hernandez [address] [place] [address] [id number] [facility] *Note: Encounters from your own facility or health system may be excluded. Allergies, Adverse Reactions, Alerts Allergen Type Severity Identification Date metoclopramide drug allergy 0 [id number] Medications Name Date Quantity Days Supplied GPI Number
[2025-04-12 08:52] LABS: Hematocrit 43.1 % (37.0-47.0); Hemoglobin 14.6 g/dL (12.2-16.2); Immature Granulocytes % 0.2 %; Mean Corpuscular HGB Conc 33.9 g/dL (31.8-35.4); Mean Corpuscular Hemoglobin 29.4 pg (27.0-31.2); Mean Corpuscular Volume 86.9 fl (81-99); Nucleated Red Blood Cells % 0 %; Platelet Count 259 K/mm3 (142-424); Red Blood Count 4.96 M/mm3 (4.20-5.40); Red Cell Distribution Width-SD 38.3 fL; White Blood Count 5.5 K/mm3 (4.8-10.8)
[2025-04-12 08:59] LABS: 25-OH Vitamin D, Total 38.5 ng/mL (30-100)
[2025-04-12 09:13] LABS: Cholesterol 204 mg/dl (140-200); HDL Cholesterol 93 mg/dl (40-60); Triglycerides 121 mg/dl (30-150)
[2025-04-12 09:14] LABS: Thyroid Stimulating Hormone 0.81 uIU/mL (0.465-4.68)
[2025-04-12 09:32] LABS: Vitamin B12 505 pg/mL (239-931)
[2025-04-13 08:29] LABS: FSH 73.3 mIU/mL (.)
[2025-04-13 10:12] LABS: Insulin Level Total 13.3 uIU/mL (2.6-24.9)
== END 2025-04-12 23:59 | disposition home or self-care (01) ==
PROVIDERS: PCP Nurse Practitioner Family; Visit Provider Obstetrics & Gynecology
DX: N95.1 Menopausal and female climacteric states (principal); R61 Generalized hyperhidrosis; E78.5 Hyperlipidemia, unspecified
CPT/HCPCS: 36415; 80061; 82306; 82607; 82670; 83001; 83525; 84144; 84443; 85025